=== PATIENT | female | born 1955 | race American Indian/Alaskan Native ===

== ENCOUNTER 2018-06-10 12:15 | Inpatient (IN) | payer OTHER ==
[2018-06-10] MEDS ORDERED: NACL 0.9% 1000 ML 1,000 ML IV ONE (13:04)
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
[2018-06-10 13:42] LABS: INR 1.38 (0.87-1.13)
[2018-06-10 13:43] LABS: Partial Thromboplastin Time 37.9 Sec. (24.2-36.6)
[2018-06-10 13:44] LABS: Hematocrit 41.7 % (30.3-42.9); Hemoglobin 13.5 gm/dl (10.1-14.3); Mean Corpuscular HGB Conc 32 % (30-34); Mean Corpuscular Volume 87 fl (79-97); Platelet Count 370 K/mm3 (140-440); Red Blood Count 4.78 M/mm3 (3.65-5.03)
[2018-06-10 13:51] LABS: BUN/Creatinine Ratio 27; Blood Urea Nitrogen 40 mg/dL (7-17); Calcium 9.4 mg/dL (8.4-10.2); Hemolysis Index 27
[2018-06-10 13:54] LABS: Alanine Aminotransferase 15 units/L (7-56); Albumin 2.4 g/dL (3.9-5)
[2018-06-10 13:55] LABS: Bilirubin,Direct < 0.2 mg/dL (0-0.2)
[2018-06-10] MEDS ORDERED: MAGNESIUM SULFATE 2GM/50ML 2 GM/50 ML BAG IV ONE ×2 (14:17→16:34)
[2018-06-10 14:30] LABS: Band Neutrophils # (Manual) 0.1 K/mm3; Basophils % (Manual) 0 % (0.0-1.8); Total Cells Counted 100
[2018-06-10 14:31] LABS: Large Platelets Few; Platelet Estimate Cons; RBC Morphology Normal
--- NOTE | 2018-06-10 14:49 | Cat Scan Report ---
CT HEAD WITHOUT CONTRAST INDICATION: Syncope, trauma. COMPARISON: None similar. FINDINGS: Noncontrast head CT demonstrates normal ventricles and sulci without acute or recent infarct, hemorrhage, mass effect or midline shift. No abnormal extra-axial fluid collections. Minimal benign bilateral basal ganglia calcifications. Posterior fossa structures and basilar cisterns within normal limits. Symmetric eye globes. Hypoplastic/aplastic bilateral frontal sinuses. Clear aerated paranasal sinuses and mastoid air cells. Intact calvarium. Normal overlying scalp soft tissues. Predominantly edentulous jaw with some anterior mandibular radiopaque dental material incidentally noted. Atherosclerotic ICA calcifications. CONCLUSION: No acute intracranial CT abnormality, as described. Thank you for the opportunity to participate in this patient's care.
--- NOTE | 2018-06-10 15:08 | Cat Scan Report ---
CT CERVICAL SPINE WITHOUT CONTRAST INDICATION: Syncope, trauma. COMPARISON: None similar. FINDINGS: Noncontrast axial, sagittal and coronal CT reconstructions through the cervical spine demonstrate normal intracranial appearance. Clear visualized paranasal sinuses and mastoid air cells. Approximately 1.8 cm asymmetric right occipital intramuscular lipoma incidentally seen as on axial series 2, image 27. Streak artifact from bilateral earrings and few small radiopaque dental material limits exam. Assessment of the spinal canal itself also compromised from C6 inferiorly due to shoulder soft tissues artifact. Intact craniocervical articulation, dens, lateral masses, anterior and posterior arches of C1, prevertebral soft tissues and airway. Multilevel degenerative spurring and endplate irregularities noted from C3 inferiorly. Straightening, possibly positional versus spasm. Approximately 1.5 cm right thyroid lobe hypodense nodule inferiorly as on axial image 69. Clear imaged lung apices. On the obtained axial images: C2-C3 is unremarkable. C3-C4 demonstrates left more than right uncovertebral and facet spurring/hypertrophy with left more than right neural foraminal narrowing, axial series 3, image 81. Mild disc narrowing as well. C4-C5 also suggests moderate left facet arthropathy and left more than right uncovertebral spurring with left neural foraminal narrowing, axial images 89-90. C5-C6 demonstrate moderate to severe disc narrowing, mild uncovertebral spurring and mild bilateral neural foraminal narrowing. C6-C7 also demonstrates moderate to severe disc narrowing with mild degenerative spurring, left more than right uncovertebral, with neural foraminal narrowing. C7-T1 suggest mild bilateral facet arthropathy/sclerosis. CONCLUSION: No acute cervical spine CT abnormality with multilevel degenerative changes and few other findings as described. Please correlate. Thank you for the opportunity to participate in this patient's care.
[2018-06-10] MEDS ORDERED: BABY ASPIRIN PO ONE (15:25)
[2018-06-10] MEDS ORDERED: BABY ASPIRIN ONE (16:33)
[2018-06-10] MEDS ORDERED: NACL 0.9% 1000 ML 1,000 ML ONE (16:34)
[2018-06-10] MEDS: FIORICET PO PRN (18:16)
[2018-06-10] MEDS ORDERED: D50W (25GM) Syringe IV PRN (22:23)
[2018-06-11] MEDS ORDERED: AMBIEN PO PRN (00:32)
[2018-06-11] MEDS ORDERED: DILAUDID IV PRN (00:38)
[2018-06-11] MEDS ORDERED: SODIUM CHLORIDE FLUSH SYRINGE 10 ML IV PRN (00:38)
[2018-06-11] MEDS ORDERED: ZOFRAN IV PRN (00:38)
--- NOTE | 2018-06-11 00:38 | Event Note ---
Date: 06/10/18 See H/p in reports Syncope--recurrent HTN T2DM Gastroparesis
[2018-06-11] MEDS ORDERED: MAGNESIUM SULFATE 2GM/50ML 2 GM/50 ML BAG IV ONE (00:49)
[2018-06-11] MEDS ORDERED: NACL 0.9% 1000 ML 1,000 ML IV SCH (01:00)
[2018-06-11] MEDS ORDERED: GLUCOPHAGE PO SCH (01:00)
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
[2018-06-11] MEDS: FIORICET PO PRN (02:38)
[2018-06-11] MEDS: APRESOLINE PO SCH ×2 (04:07→10:41)
[2018-06-11 05:53] LABS: BUN/Creatinine Ratio 32; Blood Urea Nitrogen 32 mg/dL (7-17); Calcium 9.3 mg/dL (8.4-10.2); Hemolysis Index 15
--- NOTE | 2018-06-11 06:43 | Event Note ---
Patient sustained a fall, her head hit the toilet, sustaining a laceration Obtain CT head
[2018-06-11] MEDS ORDERED: LEXISCAN IV ONE ×2 (07:59→08:08)
[2018-06-11] MEDS ORDERED: PEPCID IV SCH (10:00)
[2018-06-11] MEDS ORDERED: LASIX PO SCH (10:00)
[2018-06-11] MEDS: ZOLOFT PO SCH (10:41)
[2018-06-11] MEDS: SODIUM CHLORIDE FLUSH SYRINGE 10 ML IV SCH ×2 (10:42→21:56)
[2018-06-11] MEDS: NEURONTIN PO SCH ×2 (10:43→19:52)
--- NOTE | 2018-06-11 11:11 | Cat Scan Report ---
PROCEDURE: CT HEAD/BRAIN WO CON TECHNIQUE: Computerized tomography of the head was performed without contrast material. Coronal and s agittal reformatted images were provided. CT DOSE LENGTH PRODUCT: 773.3 mGy-cm. HISTORY: fall COMPARISONS: CT head June 10, 2018. FINDINGS: There is no evidence for acute ischemia. There is no hemorrhage. There is no midline shift. There is no hydrocephalus. There is no mass. Age appropriate dickens-white matter attenuation is noted. There is no calvarial fracture. The temporal bones demonstrate aerated mastoid air cells. The middle ears appear unremarkable. Paranasal sinuses are unremarkable. Globes are intact. IMPRESSION: * Comparison with prior will be made as an addendum once requested prior images and report are provi ded. * No acute intracranial findings. This document is electronically signed by Juan Alberto Bhatia MD., June 11 2018 11:10:00 AM ET
--- NOTE | 2018-06-11 12:30 | Vascular Lab Report ---
PROCEDURE: VL CAROTID DUPLEX BILAT TECHNIQUE: Carotid ultrasound. Degree of carotid stenosis calculated by indirect methods via the peak systolic velocities of the ICA and CCA and reference with the society of Radiologist and Ultrasound consensus conference radiology 2003. HISTORY: Syncope COMPARISONS: None currently available. FINDINGS: Note: Measurement of carotid stenosis is based on flow velocity values that correlate with the [place] Symptomatic Carotid Endarterectomy Trial (NASCET) based stenosis criteria using the internal carotid artery diameter as the denominator for stenosis calculation. RIGHT CCA, ICA, and ECA (cm/s): 122, 97, and 95. Ratio = 0.84. LEFT CCA, ICA, and ECA (cm/s): 106, 93, and 88. Ratio = 0.88. There is plaque in both carotids. Both vertebral arteries demonstrate antegrade flow. Normal spectral rhythm is identified. Incidentally noted is a right thyroid lesion measuring 1.1 x 1.2 cm. IMPRESSION: * No hemodynamically significant (>50%) stenosis noted based on the ratios, velocities, and color Do ppler images. * Incidentally noted right thyroid lesion. This document is electronically signed by Juan Alberto Bhatia MD., June 11 2018 12:28:26 PM ET
--- NOTE | 2018-06-11 13:23 | Progress Note ---
Assessment and Plan Assessment and plan: Patient is a 63 yo woman with a history of hypertension, type 2 DM, gastroparesis, CHF, DVT on Xarelto, depression, peripheral neuropahty on gabapentin and dyslipidemia who presents to [facility] ED after recurrent syncopal episode. -Syncope, work up in progress: check orthostatic vitals, 2D ECHO done but not read yet, tele monitoring, no events x [address] head negative. consult Neurology -ARF, atn + vasomotor nephropathy, poa: treat with IVF, improved, monitor closely -Hypotension: ivf and hold antihypertensives -Type 2 DM: ssi, accucheck, ada -H/o DVT on Xarelto with recurrent falls: d/c anticoagulation -Hyponatremia: ivf and monitor closely -Hypokalemia: replete and monitor closely -Hypomagensemia: ivf and monitor closely -Severe malnutrition: consult Director Facilities Maintenance -Elevated D-Dimer. poa: get venous leg doppler and CTA chest DVT prophylaxis: scd due to falls full code last night 06/10/18, patient fell again, ?another syncopal episode and was given fioricet for headaches, repeat CT head negative for any acute event. She went down for stress test today and it was canceled because she received Fioricet. Now stress test re-ordered for Wednesday. follow up cta chest, leg doppler, orthostatic vitals History Interval history: Patient was seen and examined. Follow-up on current diagnosis of Syncope. O vernight uneventful. Patient denies any chest pain, shortness breath, nausea/vomiting or severe headaches. Imaging, nursing note, chart, labs and old chart reviewed. Discussed with patient. Hospitalist Physical - Physical exam Narrative exam: Gen: WDWN, NAD, Awake, Alert, Orientated HEENT: >cut on left eyebrow lateral corner healing, EOMI, PERRL, OP Clear Neck: supple, no adenopathy, no thyromegaly, no JVD CVS/Heart: RRR, normal S1S2, pulses present bilaterally Chest/Lungs: CTA B, Symmetrical chest expansion, good air entry bilaterally GI/Abdomen: soft, NTND, good bowel sounds, no guarding or rebound /Bladder: no suprapubic tenderness, no CVA or paraspinal tenderness Extermity/Skin: no c/c/e, no obvious rash MSK: FROM x 4 Neuro: CN 2-12 grossly intact, no new focal deficits Psych: calm - Constitutional Vitals: Temp Pulse Resp BP Pulse Ox 97.8 F 76 18 124/64 97 06/11/18 07:27 06/11/18 07:27 06/11/18 07:27 06/11/18 07:27 06/11/18 07:27 Results - Labs CBC & Chem 7: 06/10/18 13:19 06/11/18 04:59 Labs: Laboratory Last Values WBC 6.2 K/mm3 (4.5-11.0) 06/10/18 13:19 RBC 4.78 M/mm3 (3.65-5.03) 06/10/18 13:19 Hgb 13.5 gm/dl (10.1-14.3) 06/10/18 13:19 Hct 41.7 % (30.3-42.9) 06/10/18 13:19 MCV 87 fl (79-97) 06/10/18 13:19 MCH 28 pg (28-32) 06/10/18 13:19 MCHC 32 % (30-34) 06/10/18 13:19 RDW 15.0 % (13.2-15.2) 06/10/18 13:19 Plt Count 370 K/mm3 (140-440) 06/10/18 13:19 Baso % (Auto) Tester Operator 06/10/18 13:19 Add Manual Diff Complete 06/10/18 13:19 Total Counted 100 06/10/18 13:19 Seg Neuts % (Manual) 61.0 % (40.0-70.0) 06/10/18 13:19 Band Neutrophils % 2.0 % 06/10/18 13:19 Lymphocytes % (Manual) 23.0 % (13.4-35.0) 06/10/18 13:19 Reactive Lymphs % (Man) 0 % 06/10/18 13:19 Monocytes % (Manual) 11.0 % (0.0-7.3) H 06/10/18 13:19 Eosinophils % (Manual) 3.0 % (0.0-4.3) 06/10/18 13:19 Basophils % (Manual) 0 % (0.0-1.8) 06/10/18 13:19 Metamyelocytes % 0 % 06/10/18 13:19 Myelocytes % 0 % 06/10/18 13:19 Promyelocytes % 0 % 06/10/18 13:19 Blast Cells % 0 % 06/10/18 13:19 Nucleated RBC % Not Reportable 06/10/18 13:19 Seg Neutrophils # Man 3.8 K/mm3 (1.8-7.7) 06/10/18 13:19 Band Neutrophils # 0.1 K/mm3 06/10/18 13:19 Lymphocytes # (Manual) 1.4 K/mm3 (1.2-5.4) 06/10/18 13:19 Abs React Lymphs (Man) 0.0 K/mm3 06/10/18 13:19 Monocytes # (Manual) 0.7 K/mm3 (0.0-0.8) 06/10/18 13:19 Eosinophils # (Manual) 0.2 K/mm3 (0.0-0.4) 06/10/18 13:19 Basophils # (Manual) 0.0 K/mm3 (0.0-0.1) 06/10/18 13:19 Metamyelocytes # 0.0 K/mm3 06/10/18 13:19 Myelocytes # 0.0 K/mm3 06/10/18 13:19 Promyelocytes # 0.0 K/mm3 06/10/18 13:19 Blast Cells # 0.0 K/mm3 06/10/18 13:19 WBC Morphology Not Reportable 06/10/18 13:19 Hypersegmented Neuts Not Reportable 06/10/18 13:19 Hyposegmented Neuts Not Reportable 06/10/18 13:19 Hypogranular Neuts Not Reportable 06/10/18 13:19 Smudge Cells Not Reportable 06/10/18 13:19 Toxic Granulation Not Reportable 06/10/18 13:19 Toxic Vacuolation Not Reportable 06/10/18 13:19 Dohle Bodies Not Reportable 06/10/18 13:19 Pelger-Huet Anomaly Not Reportable 06/10/18 13:19 Maryann Rods Not Reportable 06/10/18 13:19 Platelet Estimate Cons 06/10/18 13:19 Clumped Platelets Not Reportable 06/10/18 13:19 Plt Clumps, EDTA Not Reportable 04/26/19 13:19 Large Platelets Few 06/10/18 13:19 Giant Platelets Not Reportable 06/10/18 13:19 Platelet Satelliting Not Reportable 06/10/18 13:19 Plt Morphology Comment Not Reportable 06/10/18 13:19 RBC Morphology Normal 06/10/18 13:19 Dimorphic RBCs Not Reportable 06/10/18 13:19 Polychromasia Not Reportable 06/10/18 13:19 Hypochromasia Not Reportable 06/10/18 13:19 Poikilocytosis Not Reportable 06/10/18 13:19 Anisocytosis Not Reportable 06/10/18 13:19 Microcytosis Not Reportable 06/10/18 13:19 Macrocytosis Not Reportable 06/10/18 13:19 Spherocytes Not Reportable 06/10/18 13:19 Pappenheimer Bodies Not Reportable 06/10/18 13:19 Sickle Cells Not Reportable 06/10/18 13:19 Target Cells Not Reportable 06/10/18 13:19 Tear Drop Cells Not Reportable 06/10/18 13:19 Ovalocytes Not Reportable 06/10/18 13:19 Helmet Cells Not Reportable 06/10/18 13:19 [place] Bodies Not Reportable 06/10/18 13:19 [place] Rings Not Reportable 06/10/18 13:19 [place] Cells Not Reportable 06/10/18 13:19 Bite Cells Not Reportable 06/10/18 13:19 Crenated Cell Not Reportable 06/10/18 13:19 Elliptocytes Not Reportable 06/10/18 13:19 Acanthocytes (Spur) Not Reportable 06/10/18 13:19 Rouleaux Not Reportable 06/10/18 13:19 Hemoglobin C Crystals Not Reportable 06/10/18 13:19 Schistocytes Not Reportable 06/10/18 13:19 Malaria parasites Not Reportable 06/10/18 13:19 Ricky Bodies Not Reportable 06/10/18 13:19 Hem Pathologist Commnt No 06/10/18 13:19 PT 17.9 Sec. (12.2-14.9) H 06/10/18 13:27 INR 1.38 (0.87-1.13) H 06/10/18 13:27 APTT 37.9 Sec. (24.2-36.6) H 06/10/18 13:27 D-Dimer 506.55 ng/mlDDU (0-234) H 06/10/18 13:27 Sodium 139 mmol/L (137-145) 06/11/18 04:59 Potassium 3.0 mmol/L (3.6-5.0) L 06/11/18 04:59 Chloride 97.2 mmol/L (98-107) L 06/11/18 04:59 Carbon Dioxide 31 mmol/L (22-30) H 06/11/18 04:59 Anion Gap 14 mmol/L 06/11/18 04:59 BUN 32 mg/dL (7-17) H 06/11/18 04:59 Creatinine 1.0 mg/dL (0.7-1.2) 06/11/18 04:59 Estimated GFR > 60 ml/min 06/11/18 04:59 BUN/Creatinine Ratio 32 % 06/11/18 04:59 Glucose 91 mg/dL (65-100) 06/11/18 04:59 POC Glucose 110 (70-105) H 06/11/18 11:52 Calcium 9.3 mg/dL (8.4-10.2) 06/11/18 04:59 Magnesium 2.50 mg/dL (1.7-2.3) H 06/11/18 04:59 Total Bilirubin 0.20 mg/dL (0.1-1.2) 06/10/18 13:19 Direct Bilirubin < 0.2 mg/dL (0-0.2) 06/10/18 13:19 Indirect Bilirubin 0.0 mg/dL 06/10/18 13:19 AST 21 units/L (5-40) 06/10/18 13:19 ALT 15 units/L (7-56) 06/10/18 13:19 Alkaline Phosphatase 85 units/L (35-129) 06/10/18 13:19 Troponin T < 0.010 ng/mL (0.00-0.029) 06/10/18 13:27 Total Protein 5.9 g/dL (6.3-8.2) L 06/10/18 13:19 Albumin 2.4 g/dL (3.9-5) L 06/10/18 13:19 Albumin/Globulin Ratio 0.7 % 06/10/18 13:19 Active Medications - Current Medications Current Medications: Generic Name Dose Route Start Last Admin Trade Name Freq PRN Reason Stop Dose Admin Acetaminophen 650 mg 06/11/18 00:38 Tylenol PO Q4H PRN Pain MILD(1-3)/Fever >100.5/CARMICHAEL Amlodipine Besylate 10 mg 06/11/18 22:00 Norvasc PO HS DIMITRI Dextrose 50 ml 06/10/18 22:23 D50w (25gm) Syringe IV PRN PRN Hypoglycemia Famotidine 20 mg 06/11/18 10:00 06/11/18 10:42 Pepcid IV 20 mg BID DIMITRI Administration Furosemide 40 mg 06/11/18 10:00 06/11/18 10:41 Lasix PO 40 mg QDAY DIMITRI Administration Gabapentin 300 mg 06/11/18 08:00 06/11/18 10:43 Neurontin PO 300 mg TID DIMITRI Administration Hydralazine HCl 25 mg 06/11/18 01:00 06/11/18 10:41 Apresoline PO 25 mg BID DIMITRI Administration Hydromorphone HCl 0.5 mg 06/11/18 00:38 Dilaudid IV Q3H PRN Pain , Severe (7-10) Sodium Chloride 1,000 mls @ 75 mls/hr 06/11/18 01:00 06/11/18 02:31 Nacl 0.9% 1000 Ml IV 75 mls/hr DIRECT DIMITRI Administration Insulin Human Lispro 0 unit 06/11/18 07:30 Humalog SUB-Q [facility]S [facility] Protocol Ondansetron HCl 4 mg 06/11/18 00:38 Zofran IV Q8H PRN Nausea And Vomiting Oxycodone/Acetaminophen 1 tab 06/11/18 00:38 Percocet 5/325 PO Q6H PRN Pain, Moderate (4-6) Potassium Chloride 60 meq 06/11/18 14:07 K-Dur PO 06/11/18 14:08 ONCE ONE Pravastatin Sodium 20 mg 06/11/18 22:00 Pravachol PO QHS DIMITRI Sertraline HCl 50 mg 06/11/18 10:00 06/11/18 10:41 Zoloft PO 50 mg QAM DIMITRI Administration Sodium Chloride 10 ml 06/11/18 10:00 06/11/18 10:42 Sodium Chloride Flush Syringe 10 Ml IV 10 ml BID DIMITRI Administration Sodium Chloride 10 ml 06/11/18 00:38 Sodium Chloride Flush Syringe 10 Ml IV PRN PRN LINE FLUSH Zolpidem Tartrate 5 mg 06/11/18 00:32 Ambien PO QHS PRN Sleep Nutrition/Malnutrition Assess - Dietary Evaluation Nutrition/Malnutrition Findings: Nutrition Notes Start: 06/11/18 10:19 Freq: Status: Active Protocol: Document 06/11/18 10:19 LP (Rec: 06/11/18 10:22 LP [id number]) Nutrition Notes Need for Assessment generated from: bit shaver,MST Initial or Follow up Brief Note Current Diagnosis Acute Kidney Injury,Diabetes, Hypertension,Heart Failure Other Pertinent Diagnosis Gastroparesis Current Diet Consistent CHO Labs/Tests K 3 Pertinent Medications Lasix Height 5 ft 3 in Weight 83 kg [place] Body Weight (kg) 52.27 BMI 32.4 Subjective/Other Information Screen for MST. Pt not in room at time of visit. Burn Absent Trauma Absent Is patient on ventilator? No Is Patient Ambulatory and/or Out of Bed Yes REE-(Hardwick-St. or-ambulatory/OOB) [ 1747.369 [id number]] Calculation Used for Recommendations Hardwick-St or Additional Notes Protein needs are 83-100g (1-1 .2g/kg) Fluid needs are 1ml/kcal Nutrition Intervention Change Diet Order: Cardiac consistent CHO Goal #1 Meet at least 80% of kcal and protein needs Anticipated Discharge Needs: cardiac/consistent CHO Follow-Up By: 06/14/18 Additional Comments Follow for assessment
[2018-06-11] MEDS ORDERED: K-DUR PO ONE (14:07)
--- NOTE | 2018-06-11 14:16 | Progress Note ---
Subjective Date of service: 06/11/18 Interval history: went over the record and there is hx of syncpoe x 2 not sure about fall several days back when hit touilet and lacerated the left eye area looked at the photos' the CT is negative both times hx of diabetes suspect diabetic autonomic neuropathy rec tilt table test and check EEG Objective - Vital Sign Vital Signs - 12hr 06/11/18 06/11/18 06/11/18 02:58 04:07 07:27 Temperature 97.5 F L 97.8 F Pulse Rate 71 71 76 Respiratory 18 18 Rate Blood Pressure 118/69 118/69 Blood Pressure 124/64 [Left] O2 Sat by Pulse 99 97 Oximetry - Laboratory Findings CBC and BMP: 06/10/18 13:19 06/11/18 04:59 Abnormal Lab Findings: Abnormal Labs 06/10/18 06/10/18 06/10/18 13:19 13:19 13:27 Monocytes % (Manual) 11.0 H PT 17.9 H INR 1.38 H APTT 37.9 H D-Dimer 506.55 H Sodium Potassium Chloride Carbon Dioxide BUN Creatinine Glucose POC Glucose Magnesium Total Protein 5.9 L Albumin 2.4 L 06/10/18 06/11/18 06/11/18 13:27 04:59 04:59 Monocytes % (Manual) PT INR APTT D-Dimer Sodium 135 L Potassium 3.0 L Chloride 94.1 L 97.2 L Carbon Dioxide 31 H BUN 40 H 32 H Creatinine 1.5 H Glucose 120 H POC Glucose Magnesium 1.60 L 2.50 H Total Protein Albumin 06/11/18 11:52 Monocytes % (Manual) PT INR APTT D-Dimer Sodium Potassium Chloride Carbon Dioxide BUN Creatinine Glucose POC Glucose 110 H Magnesium Total Protein Albumin
--- NOTE | 2018-06-11 15:43 | Vascular Lab Report ---
PROCEDURE: VL VENOUS DUPLEX LE BILAT TECHNIQUE: Grayscale, color flow and Doppler tracings obtained of the veins of the lower extremities bilaterally with and without compression. HISTORY: dvt COMPARISONS: No priors FINDINGS: There is no evidence of deep venous thrombosis in the lower extremities area of the veins are patent and compressible. IMPRESSION: . No evidence of deep venous thrombosis in the lower extremities bilaterally. This document is electronically signed by Doug Escalante MD., June 11 2018 03:40:50 PM ET
[2018-06-11] MEDS: PRAVACHOL PO SCH (21:55)
[2018-06-11] MEDS: NORVASC PO SCH (21:55)
[2018-06-11] MEDS: HumaLOG SUB-Q SCH (22:50)
[2018-06-12] MEDS: TYLENOL PO PRN ×2 (00:18→19:28)
[2018-06-12 05:59] LABS: Basophils # (Auto) 0.1 K/mm3 (0.0-0.1); Eosinophils # (Auto) 0.2 K/mm3 (0.0-0.4); Eosinophils % (Auto) 3.9 % (0.0-4.3); Hematocrit 37.2 % (30.3-42.9); Hemoglobin 12.3 gm/dl (10.1-14.3); Lymphocytes # (Auto) 2.2 K/mm3 (1.2-5.4); Lymphocytes % (Auto) 40.1 % (13.4-35.0); Mean Corpuscular HGB Conc 33 % (30-34); Mean Corpuscular Volume 85 fl (79-97); Monocytes # (Auto) 0.5 K/mm3 (0.0-0.8); Monocytes % (Auto) 8.4 % (0.0-7.3); Platelet Count 389 K/mm3 (140-440); Red Blood Count 4.39 M/mm3 (3.65-5.03); Red Cell Distribution Width 14.8 % (13.2-15.2)
[2018-06-12 06:11] LABS: Alanine Aminotransferase 10 units/L (7-56); Albumin 2.4 g/dL (3.9-5); BUN/Creatinine Ratio 27; Blood Urea Nitrogen 24 mg/dL (7-17); Calcium 9.1 mg/dL (8.4-10.2); Hemolysis Index 6
[2018-06-12] MEDS: HumaLOG SUB-Q SCH ×5 (09:44→23:35)
[2018-06-12] MEDS: ZOLOFT PO SCH (10:25)
[2018-06-12] MEDS: NEURONTIN PO SCH ×3 (10:25→20:01)
[2018-06-12] MEDS: SODIUM CHLORIDE FLUSH SYRINGE 10 ML IV SCH ×2 (10:26→23:36)
--- NOTE | 2018-06-12 11:25 | Progress Note ---
Subjective Date of service: 06/12/18 Interval history: patient seen and extensive dictation done await EEG to me the syncope sounds epileptic do not believe this is Parkinson's Disease or TIA based on abruptness of episodes Objective - Vital Sign Vital Signs - 12hr 06/12/18 06/12/18 06/12/18 02:10 07:29 10:00 Temperature 98.3 F 97.8 F Pulse Rate 75 82 82 Respiratory 20 14 Rate Blood Pressure 108/59 112/68 O2 Sat by Pulse 96 97 Oximetry - Laboratory Findings CBC and BMP: 06/12/18 05:18 06/12/18 05:30 Abnormal Lab Findings: Abnormal Labs 06/10/18 06/10/18 06/10/18 13:19 13:19 13:27 Lymph % (Auto) Bent % (Auto) Monocytes % (Manual) 11.0 H PT 17.9 H INR 1.38 H APTT 37.9 H D-Dimer 506.55 H Sodium Potassium Chloride Carbon Dioxide BUN Creatinine Glucose POC Glucose Magnesium Total Protein 5.9 L Albumin 2.4 L 06/10/18 06/11/18 06/11/18 13:27 04:59 04:59 Lymph % (Auto) Bent % (Auto) Monocytes % (Manual) PT INR APTT D-Dimer Sodium 135 L Potassium 3.0 L Chloride 94.1 L 97.2 L Carbon Dioxide 31 H BUN 40 H 32 H Creatinine 1.5 H Glucose 120 H POC Glucose Magnesium 1.60 L 2.50 H Total Protein Albumin 06/11/18 06/12/18 06/12/18 11:52 05:18 05:30 Lymph % (Auto) 40.1 H Bent % (Auto) 8.4 H Monocytes % (Manual) PT INR APTT D-Dimer Sodium Potassium 3.5 L Chloride Carbon Dioxide BUN 24 H Creatinine Glucose POC Glucose 110 H Magnesium Total Protein 4.4 L D Albumin 2.4 L
[2018-06-12] MEDS ORDERED: K-DUR PO ONE (13:22)
--- NOTE | 2018-06-12 13:33 | Progress Note ---
Assessment and Plan Assessment and plan: Patient is a 63 yo woman with a history of hypertension, type 2 DM, gastroparesis s/p PEG tube, CHF, DVT on Xarelto, depression, peripheral neuropahty on gabapentin and dyslipidemia who presents to [facility] ED after recurrent syncopal episode. -Syncope, work up in progress: check orthostatic vitals, 2D ECHO done but not read yet, tele monitoring, no events x [address] head negative. consult Neurology -ARF, atn + vasomotor nephropathy, poa: treat with IVF, improved, monitor closely -Hypotension: ivf and hold antihypertensives -Gastroparesis with PEG tube in place: consult Plow Mechanic for tube feedings -Type 2 DM: ssi, accucheck, ada -H/o DVT on Xarelto with recurrent falls: d/c anticoagulation -Hyponatremia: ivf and monitor closely -Hypokalemia: replete and monitor closely -Hypomagensemia: ivf and monitor closely -Severe malnutrition with PEG tube: consulted Plow Mechanic -Elevated D-Dimer. poa: ordered venous leg doppler and CTA chest DVT prophylaxis: scd due to falls full code 06/10/18, patient fell again, ?another syncopal episode and was given fioricet for headaches so Stress test was cancelled, repeat CT head negative for any acute event. She went down for stress test today and it was canceled because she received Fioricet. Now stress test re-ordered for Wednesday. 06/11/18: ordered cta chest, leg doppler and orthostatic vitials 06/12/18: cta chest still pending, was ordered stat, called Radiology dept, no answer then called rice milling supervisor and spoke with Cherry. Bilateral venous leg doppler negative for DVT, Orthostatic vitals still pending, spoke with rice milling supervisor. Stress tomorrow, also consult vegetable washer for tube feedings. Also, patient says she was just at [facility], will request records. Disposition, if stress test negative for ischemia and CTA chest negative for PE then discharge home tomorrow. History Interval history: Patient was seen and examined. Follow-up on current diagnosis of Syncope. Overnight uneventful. Patient denies any chest pain, shortness breath, nausea/vomiting or severe headaches. Imaging, nursing note, chart, labs and old chart reviewed. Discussed with patient. Hospitalist Physical - Physical exam Narrative exam: Gen: WDWN, NAD, Awake, Alert, Orientated HEENT: >cut on left eyebrow lateral corner healing, EOMI, PERRL, OP Clear Neck: supple, no adenopathy, no thyromegaly, no JVD CVS/Heart: RRR, normal S1S2, pulses present bilaterally Chest/Lungs: CTA B, Symmetrical chest expansion, good air entry bilaterally GI/Abdomen: soft, NTND, PEG tube in place, good bowel sounds, no guarding or rebound /Bladder: no suprapubic tenderness, no CVA or paraspinal tenderness Extermity/Skin: no c/c/e, no obvious rash MSK: FROM x 4 Neuro: CN 2-12 grossly intact, no new focal deficits Psych: calm - Constitutional Vitals: Temp Pulse Resp BP Pulse Ox 97.8 F 82 14 112/68 97 06/12/18 07:29 06/12/18 10:00 06/12/18 07:29 06/12/18 07:29 06/12/18 07:29 Results - Labs CBC & Chem 7: 06/12/18 05:18 06/12/18 05:30 Labs: Laboratory Last Values WBC 5.6 K/mm3 (4.5-11.0) 06/12/18 05:18 RBC 4.39 M/mm3 (3.65-5.03) 06/12/18 05:18 Hgb 12.3 gm/dl (10.1-14.3) 06/12/18 05:18 Hct 37.2 % (30.3-42.9) 06/12/18 05:18 MCV 85 fl (79-97) 06/12/18 05:18 MCH 28 pg (28-32) 06/12/18 05:18 MCHC 33 % (30-34) 06/12/18 05:18 RDW 14.8 % (13.2-15.2) 06/12/18 05:18 Plt Count 389 K/mm3 (140-440) 06/12/18 05:18 Lymph % (Auto) 40.1 % (13.4-35.0) H 06/12/18 05:18 [place] % (Auto) 8.4 % (0.0-7.3) H 06/12/18 05:18 Eos % (Auto) 3.9 % (0.0-4.3) 06/12/18 05:18 Baso % (Auto) 1.0 % (0.0-1.8) 06/12/18 05:18 Lymph # 2.2 K/mm3 (1.2-5.4) 06/12/18 05:18 [place] # 0.5 K/mm3 (0.0-0.8) 06/12/18 05:18 Eos # 0.2 K/mm3 (0.0-0.4) 06/12/18 05:18 Baso # 0.1 K/mm3 (0.0-0.1) 06/12/18 05:18 Add Manual Diff Complete 06/10/18 13:19 Total Counted 100 06/10/18 13:19 Seg Neutrophils % 46.6 % (40.0-70.0) 06/12/18 05:18 Seg Neuts % (Manual) 61.0 % (40.0-70.0) 06/10/18 13:19 Band Neutrophils % 2.0 % 06/10/18 13:19 Lymphocytes % (Manual) 23.0 % (13.4-35.0) 06/10/18 13:19 Reactive Lymphs % (Man) 0 % 06/10/18 13:19 Monocytes % (Manual) 11.0 % (0.0-7.3) H 06/10/18 13:19 Eosinophils % (Manual) 3.0 % (0.0-4.3) 06/10/18 13:19 Basophils % (Manual) 0 % (0.0-1.8) 06/10/18 13:19 Metamyelocytes % 0 % 06/10/18 13:19 Myelocytes % 0 % 06/10/18 13:19 Promyelocytes % 0 % 06/10/18 13:19 Blast Cells % 0 % 06/10/18 13:19 Nucleated RBC % Not Reportable 06/10/18 13:19 Seg Neutrophils # 2.6 K/mm3 (1.8-7.7) 06/12/18 05:18 Seg Neutrophils # Man 3.8 K/mm3 (1.8-7.7) 06/10/18 13:19 Band Neutrophils # 0.1 K/mm3 06/10/18 13:19 Lymphocytes # (Manual) 1.4 K/mm3 (1.2-5.4) 06/10/18 13:19 Abs React Lymphs (Man) 0.0 K/mm3 06/10/18 13:19 Monocytes # (Manual) 0.7 K/mm3 (0.0-0.8) 06/10/18 13:19 Eosinophils # (Manual) 0.2 K/mm3 (0.0-0.4) 06/10/18 13:19 Basophils # (Manual) 0.0 K/mm3 (0.0-0.1) 06/10/18 13:19 Metamyelocytes # 0.0 K/mm3 06/10/18 13:19 Myelocytes # 0.0 K/mm3 06/10/18 13:19 Promyelocytes # 0.0 K/mm3 06/10/18 13:19 Blast Cells # 0.0 K/mm3 06/10/18 13:19 WBC Morphology Not Reportable 06/10/18 13:19 Hypersegmented Neuts Not Reportable 06/10/18 13:19 Hyposegmented Neuts Not Reportable 06/10/18 13:19 Hypogranular Neuts Not Reportable 06/10/18 13:19 Smudge Cells Not Reportable 06/10/18 13:19 Toxic Granulation Not Reportable 06/10/18 13:19 Toxic Vacuolation Not Reportable 06/10/18 13:19 Dohle Bodies Not Reportable 06/10/18 13:19 Pelger-Huet Anomaly Not Reportable 06/10/18 13:19 Maryann Rods Not Reportable 06/10/18 13:19 Platelet Estimate Cons 06/10/18 13:19 Clumped Platelets Not Reportable 06/10/18 13:19 Plt Clumps, EDTA Not Reportable 06/10/18 13:19 Large Platelets Few 06/10/18 13:19 Giant Platelets Not Reportable 06/10/18 13:19 Platelet Satelliting Not Reportable 06/10/18 13:19 Plt Morphology Comment Not Reportable 06/10/18 13:19 RBC Morphology Normal 06/10/18 13:19 Dimorphic RBCs Not Reportable 06/10/18 13:19 Polychromasia Not Reportable 06/10/18 13:19 Hypochromasia Not Reportable 06/10/18 13:19 Poikilocytosis Not Reportable 06/10/18 13:19 Anisocytosis Not Reportable 06/10/18 13:19 Microcytosis Not Reportable 06/10/18 13:19 Macrocytosis Not Reportable 06/10/18 13:19 Spherocytes Not Reportable 06/10/18 13:19 Pappenheimer Bodies Not Reportable 06/10/18 13:19 Sickle Cells Not Reportable 06/10/18 13:19 Target Cells Not Reportable 06/10/18 13:19 Tear Drop Cells Not Reportable 06/10/18 13:19 Ovalocytes Not Reportable 06/10/18 13:19 Helmet Cells Not Reportable 06/10/18 13:19 [place] Bodies Not Reportable 06/10/18 13:19 [place] Rings Not Reportable 06/10/18 13:19 [place] Cells Not Reportable 06/10/18 13:19 Bite Cells Not Reportable 06/10/18 13:19 Crenated Cell Not Reportable 06/10/18 13:19 Elliptocytes Not Reportable 06/10/18 13:19 Acanthocytes (Spur) Not Reportable 06/10/18 13:19 Rouleaux Not Reportable 06/10/18 13:19 Hemoglobin C Crystals Not Reportable 06/10/18 13:19 Schistocytes Not Reportable 06/10/18 13:19 Malaria parasites Not Reportable 06/10/18 13:19 Ricky Bodies Not Reportable 06/10/18 13:19 Hem Pathologist Commnt No 06/10/18 13:19 PT 17.9 Sec. (12.2-14.9) H 06/10/18 13:27 INR 1.38 (0.87-1.13) H 06/10/18 13:27 APTT 37.9 Sec. (24.2-36.6) H 06/10/18 13:27 D-Dimer 506.55 ng/mlDDU (0-234) H 06/10/18 13:27 Sodium 141 mmol/L (137-145) 06/12/18 05:30 Potassium 3.5 mmol/L (3.6-5.0) L 06/12/18 05:30 Chloride 102.9 mmol/L (98-107) 06/12/18 05:30 Carbon Dioxide 28 mmol/L (22-30) 06/12/18 05:30 Anion Gap 14 mmol/L 06/12/18 05:30 BUN 24 mg/dL (7-17) H 06/12/18 05:30 Creatinine 0.9 mg/dL (0.7-1.2) 06/12/18 05:30 Estimated GFR > 60 ml/min 06/12/18 05:30 BUN/Creatinine Ratio 27 % 06/12/18 05:30 Glucose 87 mg/dL (65-100) 06/12/18 05:30 POC Glucose 81 (70-105) 06/12/18 12:02 Calcium 9.1 mg/dL (8.4-10.2) 06/12/18 05:30 Magnesium 2.50 mg/dL (1.7-2.3) H 06/11/18 04:59 Total Bilirubin 0.20 mg/dL (0.1-1.2) 06/12/18 05:30 Direct Bilirubin < 0.2 mg/dL (0-0.2) 06/10/18 13:19 Indirect Bilirubin 0.0 mg/dL 06/10/18 13:19 AST 14 units/L (5-40) 06/12/18 05:30 ALT 10 units/L (7-56) 06/12/18 05:30 Alkaline Phosphatase 72 units/L (35-129) 06/12/18 05:30 Troponin T < 0.010 ng/mL (0.00-0.029) 06/10/18 13:27 Total Protein 4.4 g/dL (6.3-8.2) L D 06/12/18 05:30 Albumin 2.4 g/dL (3.9-5) L 06/12/18 05:30 Albumin/Globulin Ratio 1.2 % 06/12/18 05:30 Active Medications - Current Medications Current Medications: Generic Name Dose Route Start Last Admin Trade Name Freq PRN Reason Stop Dose Admin Acetaminophen 650 mg 06/11/18 00:38 06/12/18 00:18 Tylenol PO 650 mg Q4H PRN Administration Pain MILD(1-3)/Fever >100.5/CARMICHAEL Amlodipine Besylate 10 mg 06/11/18 22:00 06/11/18 21:55 Norvasc PO 10 mg HS DIMITRI Administration Dextrose 50 ml 06/10/18 22:23 D50w (25gm) Syringe IV PRN PRN Hypoglycemia Gabapentin 300 mg 06/11/18 08:00 06/12/18 10:25 Neurontin PO 300 mg TID DIMITRI Administration Sodium Chloride 1,000 mls @ 75 mls/hr 06/11/18 01:00 06/11/18 02:31 Nacl 0.9% 1000 Ml IV 75 mls/hr DIRECT DIMITRI Administration Insulin Human Lispro 0 unit 06/11/18 07:30 06/12/18 09:44 Humalog SUB-Q Not Given ACHS [facility] Protocol Ondansetron HCl 4 mg 06/11/18 00:38 Zofran IV Q8H PRN Nausea And Vomiting Oxycodone/Acetaminophen 1 tab 06/11/18 00:38 Percocet 5/325 PO Q6H PRN Pain, Moderate (4-6) Pravastatin Sodium 20 mg 06/11/18 22:00 06/11/18 21:55 Pravachol PO 20 mg QHS DIMITRI Administration Sertraline HCl 50 mg 06/11/18 10:00 06/12/18 10:25 Zoloft PO 50 mg QAM DIMITRI Administration Sodium Chloride 10 ml 06/11/18 10:00 06/12/18 10:26 Sodium Chloride Flush Syringe 10 Ml IV 10 ml BID DIMITRI Administration Sodium Chloride 10 ml 06/11/18 00:38 Sodium Chloride Flush Syringe 10 Ml IV PRN PRN LINE FLUSH Zolpidem Tartrate 5 mg 06/11/18 00:32 Ambien PO QHS PRN Sleep Nutrition/Malnutrition Assess - Dietary Evaluation Nutrition/Malnutrition Findings: Nutrition Notes Start: 06/11/18 10:19 Freq: Status: Active Protocol: Document 06/11/18 10:19 LP (Rec: 06/11/18 10:22 LP [id number]) Nutrition Notes Need for Assessment generated from: jig borer,MST Initial or Follow up Brief Note Current Diagnosis Acute Kidney Injury,Diabetes, Hypertension,Heart Failure Other Pertinent Diagnosis Gastroparesis Current Diet Consistent CHO Labs/Tests K 3 Pertinent Medications Lasix Height 5 ft 3 in Weight 83 kg [place] Body Weight (kg) 52.27 BMI 32.4 Subjective/Other Information Screen for MST. Pt not in room at time of visit. Burn Absent Trauma Absent Is patient on ventilator? No Is Patient Ambulatory and/or Out of Bed Yes REE-([facility]-ambulatory/OOB) [ 1747.369 [id number]] Calculation Used for Recommendations [facility] Additional Notes Protein needs are 83-100g (1-1 .2g/kg) Fluid needs are 1ml/kcal Nutrition Intervention Change Diet Order: Cardiac consistent CHO Goal #1 Meet at least 80% of kcal and protein needs Anticipated Discharge Needs: cardiac/consistent CHO Follow-Up By: 06/14/18 Additional Comments Follow for assessment
[2018-06-12] MEDS: PERCOCET 5/325 PO PRN (14:19)
--- NOTE | 2018-06-12 14:43 | Cat Scan Report ---
PROCEDURE: CT ANGIOGRAM OF THE CHEST FOR PULMONARY EMBOLISM TECHNIQUE: Computerized axial tomographic angiography of the chest and pulmonary arteries was perfor med after the IV injection of iodinated nonionic contrast. The image data was postprocessed using max imum intensity projection (MIP) and 2-dimensional multiplanar reformatted (MPR) techniques. The exami nation is specifically tailored to the evaluation of the pulmonary arteries per clinical request. Au tomated exposure control, adjustment of mA and/or kV according to patient size, or iterative reconstr uction dose optimization techniques were utilized. CPT G9637, 58015 HISTORY: Shortness of breath R06.02, chest pain unspecified R07.9 , COMPARISONS: None . FINDINGS: Heart and pericardium: There is anterior pericardial fluid, measuring up to 9 mm in thickness. Thoracic aorta: Atherosclerotic calcification of the aorta. Pulmonary vasculature: Normal. No pulmonary emboli. Lymph nodes: No enlarged thoracic lymph nodes. Lungs: Normal. Pleural space: No effusion, thickening, or pneumothorax. Musculoskeletal structures: There are multilevel thoracolumbar spine degenerative disc changes. Upper abdominal structures: Gastrostomy tube is present. IMPRESSION: No evidence of pulmonary emboli. Pericardial effusion as described above This document is electronically signed by Molly Velázquez MD., June 12 2018 02:41:18 PM ET
[2018-06-12] MEDS: PRAVACHOL PO SCH (21:33)
[2018-06-12] MEDS: NORVASC PO SCH (23:34)
[2018-06-13 06:25] LABS: Hematocrit 36.7 % (30.3-42.9); Hemoglobin 12.2 gm/dl (10.1-14.3); Mean Corpuscular HGB Conc 33 % (30-34); Mean Corpuscular Volume 85 fl (79-97); Platelet Count 373 K/mm3 (140-440); Red Blood Count 4.33 M/mm3 (3.65-5.03)
[2018-06-13 06:30] LABS: BUN/Creatinine Ratio 24; Blood Urea Nitrogen 19 mg/dL (7-17); Hemolysis Index 9
[2018-06-13] MEDS: HumaLOG SUB-Q SCH ×5 (08:37→23:00)
[2018-06-13] MEDS: NEURONTIN PO SCH ×3 (08:38→21:13)
[2018-06-13] MEDS ORDERED: LEXISCAN IV ONE ×2 (10:45→10:46)
--- NOTE | 2018-06-13 11:29 | Progress Note ---
Assessment and Plan Assessment and plan: Patient is a 63 yo woman with a history of hypertension, type 2 DM, gastroparesis s/p PEG tube, CHF, DVT on Xarelto, depression, peripheral neuropahty on gabapentin and dyslipidemia who presents to [facility] ED after recurrent syncopal episode. -Syncope, work up in progress: check orthostatic vitals, 2D ECHO done but not read yet, tele monitoring, no events x [address] head negative. consult Neurology -ARF, atn + vasomotor nephropathy, poa: treat with IVF, improved, monitor closely -Hypotension: ivf and hold antihypertensives -Gastroparesis with PEG tube in place: consult [employer] Crewman for tube feedings -Type 2 DM: ssi, accucheck, ada -H/o DVT on Xarelto with recurrent falls: d/c anticoagulation -Hyponatremia: ivf and monitor closely -Hypokalemia: replete and monitor closely -Hypomagensemia: ivf and monitor closely -Severe malnutrition with PEG tube: consulted [employer] Crewman -Elevated D-Dimer. poa: ordered venous leg doppler and CTA chest negative for PE DVT prophylaxis: scd due to falls full code 06/10/18, patient fell again, ?another syncopal episode and was given fioricet for headaches so Stress test was cancelled, repeat CT head negative for any acute event. She went down for stress test today and it was canceled because she received Fioricet. Now stress test re-ordered for Wednesday. 06/11/18: ordered cta chest, leg doppler and orthostatic vitals 06/12/18: cta chest still pending, was ordered stat, called Radiology dept, no answer then called paint supervisor and spoke with Cherry. Bilateral venous leg doppler negative for DVT, Orthostatic vitals still pending, spoke with paint supervisor and she made sure it was read, CTA chest negative for PE Stress tomorrow, also consult crystalizer for tube feedings. Also, patient says she was just at [facility], will request records. 06/13/18: stress test today. Ordered PT for ambulatory dysfunction. Disposition: continue inpatient care, if stress test negative possible discharge today depending on PT recommendation. History Interval history: Patient was seen and examined. Follow-up on current diagnosis of Syncope. Overnight uneventful. Patient denies any chest pain, shortness breath, nausea/vomiting or severe headaches. Imaging, nursing note, chart, labs and old chart reviewed. Discussed with patient. Hospitalist Physical - Physical exam Narrative exam: Gen: WDWN, NAD, Awake, Alert, Orientated HEENT: >cut on left eyebrow lateral corner healing, EOMI, PERRL, OP Clear Neck: supple, no adenopathy, no thyromegaly, no JVD CVS/Heart: RRR, normal S1S2, pulses present bilaterally Chest/Lungs: CTA B, Symmetrical chest expansion, good air entry bilaterally GI/Abdomen: soft, NTND, PEG tube in place, good bowel sounds, no guarding or rebound /Bladder: no suprapubic tenderness, no CVA or paraspinal tenderness Extermity/Skin: no c/c/e, no obvious rash MSK: FROM x 4 Neuro: CN 2-12 grossly intact, no new focal deficits Psych: calm - Constitutional Vitals: Temp Pulse Resp BP Pulse Ox 97.8 F 88 18 98/61 94 06/13/18 07:37 06/13/18 07:37 06/13/18 07:37 06/13/18 07:37 06/13/18 07:37 Results - Labs CBC & Chem 7: 06/13/18 05:43 06/13/18 05:43 Labs: Laboratory Last Values WBC 4.7 K/mm3 (4.5-11.0) 06/13/18 05:43 RBC 4.33 M/mm3 (3.65-5.03) 06/13/18 05:43 Hgb 12.2 gm/dl (10.1-14.3) 06/13/18 05:43 Hct 36.7 % (30.3-42.9) 06/13/18 05:43 MCV 85 fl (79-97) 06/13/18 05:43 MCH 28 pg (28-32) 06/13/18 05:43 MCHC 33 % (30-34) 06/13/18 05:43 RDW 15.0 % (13.2-15.2) 06/13/18 05:43 Plt Count 373 K/mm3 (140-440) 06/13/18 05:43 Lymph % (Auto) 40.1 % (13.4-35.0) H 06/12/18 05:18 [place] % (Auto) 8.4 % (0.0-7.3) H 06/12/18 05:18 Eos % (Auto) 3.9 % (0.0-4.3) 06/12/18 05:18 Baso % (Auto) 1.0 % (0.0-1.8) 06/12/18 05:18 Lymph # 2.2 K/mm3 (1.2-5.4) 06/12/18 05:18 [place] # 0.5 K/mm3 (0.0-0.8) 06/12/18 05:18 Eos # 0.2 K/mm3 (0.0-0.4) 06/12/18 05:18 Baso # 0.1 K/mm3 (0.0-0.1) 06/12/18 05:18 Add Manual Diff Complete 06/10/18 13:19 Total Counted 100 06/10/18 13:19 Seg Neutrophils % 46.6 % (40.0-70.0) 06/12/18 05:18 Seg Neuts % (Manual) 61.0 % (40.0-70.0) 06/10/18 13:19 Band Neutrophils % 2.0 % 06/10/18 13:19 Lymphocytes % (Manual) 23.0 % (13.4-35.0) 06/10/18 13:19 Reactive Lymphs % (Man) 0 % 06/10/18 13:19 Monocytes % (Manual) 11.0 % (0.0-7.3) H 06/10/18 13:19 Eosinophils % (Manual) 3.0 % (0.0-4.3) 06/10/18 13:19 Basophils % (Manual) 0 % (0.0-1.8) 06/10/18 13:19 Metamyelocytes % 0 % 06/10/18 13:19 Myelocytes % 0 % 06/10/18 13:19 Promyelocytes % 0 % 06/10/18 13:19 Blast Cells % 0 % 06/10/18 13:19 Nucleated RBC % Not Reportable 06/10/18 13:19 Seg Neutrophils # 2.6 K/mm3 (1.8-7.7) 06/12/18 05:18 Seg Neutrophils # Man 3.8 K/mm3 (1.8-7.7) 06/10/18 13:19 Band Neutrophils # 0.1 K/mm3 06/10/18 13:19 Lymphocytes # (Manual) 1.4 K/mm3 (1.2-5.4) 06/10/18 13:19 Abs React Lymphs (Man) 0.0 K/mm3 06/10/18 13:19 Monocytes # (Manual) 0.7 K/mm3 (0.0-0.8) 06/10/18 13:19 Eosinophils # (Manual) 0.2 K/mm3 (0.0-0.4) 06/10/18 13:19 Basophils # (Manual) 0.0 K/mm3 (0.0-0.1) 06/10/18 13:19 Metamyelocytes # 0.0 K/mm3 06/10/18 13:19 Myelocytes # 0.0 K/mm3 06/10/18 13:19 Promyelocytes # 0.0 K/mm3 06/10/18 13:19 Blast Cells # 0.0 K/mm3 06/10/18 13:19 WBC Morphology Not Reportable 06/10/18 13:19 Hypersegmented Neuts Not Reportable 06/10/18 13:19 Hyposegmented Neuts Not Reportable 06/10/18 13:19 Hypogranular Neuts Not Reportable 06/10/18 13:19 Smudge Cells Not Reportable 06/10/18 13:19 Toxic Granulation Not Reportable 06/10/18 13:19 Toxic Vacuolation Not Reportable 06/10/18 13:19 Dohle Bodies Not Reportable 06/10/18 13:19 Pelger-Huet Anomaly Not Reportable 06/10/18 13:19 Maryann Rods Not Reportable 06/10/18 13:19 Platelet Estimate Cons 06/10/18 13:19 Clumped Platelets Not Reportable 06/10/18 13:19 Plt Clumps, EDTA Not Reportable 06/10/18 13:19 Large Platelets Few 06/10/18 13:19 Giant Platelets Not Reportable 06/10/18 13:19 Platelet Satelliting Not Reportable 06/10/18 13:19 Plt Morphology Comment Not Reportable 06/10/18 13:19 RBC Morphology Normal 06/10/18 13:19 Dimorphic RBCs Not Reportable 06/10/18 13:19 Polychromasia Not Reportable 06/10/18 13:19 Hypochromasia Not Reportable 06/10/18 13:19 Poikilocytosis Not Reportable 06/10/18 13:19 Anisocytosis Not Reportable 06/10/18 13:19 Microcytosis Not Reportable 06/10/18 13:19 Macrocytosis Not Reportable 06/10/18 13:19 Spherocytes Not Reportable 06/10/18 13:19 Pappenheimer Bodies Not Reportable 06/10/18 13:19 Sickle Cells Not Reportable 06/10/18 13:19 Target Cells Not Reportable 06/10/18 13:19 Tear Drop Cells Not Reportable 06/10/18 13:19 Ovalocytes Not Reportable 06/10/18 13:19 Helmet Cells Not Reportable 06/10/18 13:19 [place] Bodies Not Reportable 06/10/18 13:19 [place] Rings Not Reportable 06/10/18 13:19 [place] Cells Not Reportable 06/10/18 13:19 Bite Cells Not Reportable 06/10/18 13:19 Crenated Cell Not Reportable 06/10/18 13:19 Elliptocytes Not Reportable 06/10/18 13:19 Acanthocytes (Spur) Not Reportable 06/10/18 13:19 Rouleaux Not Reportable 06/10/18 13:19 Hemoglobin C Crystals Not Reportable 06/10/18 13:19 Schistocytes Not Reportable 06/10/18 13:19 Malaria parasites Not Reportable 06/10/18 13:19 Ricky Bodies Not Reportable 06/10/18 13:19 Hem Pathologist Commnt No 06/10/18 13:19 PT 17.9 Sec. (12.2-14.9) H 06/10/18 13:27 INR 1.38 (0.87-1.13) H 06/10/18 13:27 APTT 37.9 Sec. (24.2-36.6) H 06/10/18 13:27 D-Dimer 506.55 ng/mlDDU (0-234) H 06/10/18 13:27 Sodium 141 mmol/L (137-145) 06/13/18 05:43 Potassium 3.8 mmol/L (3.6-5.0) 06/13/18 05:43 Chloride 105.1 mmol/L (98-107) 06/13/18 05:43 Carbon Dioxide 28 mmol/L (22-30) 06/13/18 05:43 Anion Gap 12 mmol/L 06/13/18 05:43 BUN 19 mg/dL (7-17) H 06/13/18 05:43 Creatinine 0.8 mg/dL (0.7-1.2) 06/13/18 05:43 Estimated GFR > 60 ml/min 06/13/18 05:43 BUN/Creatinine Ratio 24 % 06/13/18 05:43 Glucose 95 mg/dL (65-100) 06/13/18 05:43 POC Glucose 81 (70-105) 06/13/18 07:44 Calcium 9.0 mg/dL (8.4-10.2) 06/13/18 05:43 Magnesium 1.60 mg/dL (1.7-2.3) L 06/13/18 05:43 Total Bilirubin 0.20 mg/dL (0.1-1.2) 06/12/18 05:30 Direct Bilirubin < 0.2 mg/dL (0-0.2) 06/10/18 13:19 Indirect Bilirubin 0.0 mg/dL 06/10/18 13:19 AST 14 units/L (5-40) 06/12/18 05:30 ALT 10 units/L (7-56) 06/12/18 05:30 Alkaline Phosphatase 72 units/L (35-129) 06/12/18 05:30 Troponin T < 0.010 ng/mL (0.00-0.029) 06/13/18 05:43 Total Protein 4.4 g/dL (6.3-8.2) L D 06/12/18 05:30 Albumin 2.4 g/dL (3.9-5) L 06/12/18 05:30 Albumin/Globulin Ratio 1.2 % 06/12/18 05:30 Active Medications - Current Medications Current Medications: Generic Name Dose Route Start Last Admin Trade Name Freq PRN Reason Stop Dose Admin Acetaminophen 650 mg 06/11/18 00:38 06/12/18 19:28 Tylenol PO 650 mg Q4H PRN Administration Pain MILD(1-3)/Fever >100.5/CARMICHAEL Amlodipine Besylate 10 mg 06/11/18 22:00 06/12/18 23:34 Norvasc PO Not Given HS DIMITRI Dextrose 50 ml 06/10/18 22:23 D50w (25gm) Syringe IV PRN PRN Hypoglycemia Gabapentin 300 mg 06/11/18 08:00 06/13/18 08:38 Neurontin PO Not Given TID [facility] Insulin Human Lispro 0 unit 06/11/18 07:30 06/13/18 08:37 Humalog SUB-Q Not Given ACHS [facility] Protocol Ondansetron HCl 4 mg 06/11/18 00:38 Zofran IV Q8H PRN Nausea And Vomiting Oxycodone/Acetaminophen 1 tab 06/11/18 00:38 06/12/18 14:19 Percocet 5/325 PO 1 tab Q6H PRN Administration Pain, Moderate (4-6) Pravastatin Sodium 20 mg 06/11/18 22:00 06/12/18 21:33 Pravachol PO 20 mg QHS DIMITRI Administration Rivaroxaban 20 mg 06/13/18 18:00 Xarelto PO QPM [facility] Protocol Sertraline HCl 50 mg 06/11/18 10:00 06/12/18 10:25 Zoloft PO 50 mg QAM DIMITRI Administration Sodium Chloride 10 ml 06/11/18 10:00 06/12/18 23:36 Sodium Chloride Flush Syringe 10 Ml IV Not Given BID DIMITRI Sodium Chloride 10 ml 06/11/18 00:38 Sodium Chloride Flush Syringe 10 Ml IV PRN PRN LINE FLUSH Zolpidem Tartrate 5 mg 06/11/18 00:32 Ambien PO QHS PRN Sleep Nutrition/Malnutrition Assess - Dietary Evaluation Nutrition/Malnutrition Findings: Nutrition Notes Start: 06/11/18 10:19 Freq: Status: Active Protocol: Document 06/11/18 10:19 LP (Rec: 06/11/18 10:22 LP [email or web address]) Nutrition Notes Need for Assessment generated from: traffic control supervisor,MST Initial or Follow up Brief Note Current Diagnosis Acute Kidney Injury,Diabetes, Hypertension,Heart Failure Other Pertinent Diagnosis Gastroparesis Current Diet Consistent CHO Labs/Tests K 3 Pertinent Medications Lasix Height 5 ft 3 in Weight 83 kg [place] Body Weight (kg) 52.27 BMI 32.4 Subjective/Other Information Screen for MST. Pt not in room at time of visit. Burn Absent Trauma Absent Is patient on ventilator? No Is Patient Ambulatory and/or Out of Bed Yes REE-([facility]-ambulatory/OOB) [ [id number] [id number]] Calculation Used for Recommendations [facility] Additional Notes Protein needs are 83-100g (1-1 .2g/kg) Fluid needs are 1ml/kcal Nutrition Intervention Change Diet Order: Cardiac consistent CHO Goal #1 Meet at least 80% of kcal and protein needs Anticipated Discharge Needs: cardiac/consistent CHO Follow-Up By: 06/14/18 Additional Comments Follow for assessment
--- NOTE | 2018-06-13 11:36 | Discharge Summary ---
Providers - Providers Date of Admission: 06/10/18 15:14 Date of discharge: 06/13/18 Attending physician: OBDULIA BAIRD 06/11/18 13:29 Consult to Physician [CONS] Routine Comment: Consulting Provider: ARGELIA DEY Physician Instructions: Reason For Exam: recurrent syncope 06/12/18 13:21 Consult to Dietitian/Nutrition [CONS] Routine Physician Instructions: Reason For Exam: Reason for Consult: Write/Manage Tube Feeding 06/13/18 11:24 Occupational Therapy Evaluate and Treat [CONS] Routine Reason For Exam: ADLs evaluation Comment: Physical Therapy Evaluation and Treat [CONS] Routine Reason For Exam: gait evaluation/ambulatory dysfunction Comment: [facility] Condition: Stable Hospital course: Patient is a 63 yo woman with a history of hypertension, type 2 DM, gastroparesis s/p PEG tube, CHF, DVT on Xarelto, depression, peripheral neuropahty on gabapentin and dyslipidemia who [facility] after recurrent syncopal episode. -Syncope, work up in progress: check orthostatic vitals, 2D ECHO done but not read yet, tele monitoring, no events x [address] head negative. consult Neurology -ARF, atn + vasomotor nephropathy, poa: treat with IVF, improved, monitor closely -Hypotension: ivf and hold antihypertensives -Gastroparesis with PEG tube in place: consult Leather Cleaner for tube feedings -Type 2 DM: ssi, accucheck, ada -H/o DVT on Xarelto with recurrent falls: d/c anticoagulation -Hyponatremia: ivf and monitor closely -Hypokalemia: replete and monitor closely -Hypomagensemia: ivf and monitor closely -Severe malnutrition with PEG tube: consulted Leather Cleaner -Elevated D-Dimer. poa: ordered venous leg doppler and CTA chest negative for PE DVT prophylaxis: scd due to falls full code 06/10/18, patient fell again, ?another syncopal episode and was given fioricet for headaches so Stress test was cancelled, repeat CT head negative for any acute event. She went down for stress test today and it was canceled because she received Fioricet. Now stress test re-ordered for Wednesday. 06/11/18: ordered cta chest, leg doppler and orthostatic vitals 06/12/18: cta chest still pending, was ordered stat, called Radiology dept, no answer then called supervisor mattress and boxsprings and spoke with Cherry. Bilateral venous leg doppler negative for DVT, Orthostatic vitals still pending, spoke with supervisor mattress and boxsprings and she made sure it was read, CTA chest negative for PE Stress tomorrow, also consult verification rep for tube feedings. Also, patient says she was just at [facility], will request records. 06/13/18: stress test today. Ordered PT for ambulatory dysfunction. Disposition: if stress test negative possible discharge today depending on PT recommendation. Disposition: DC/TX-06 HOME [facility]ER [facility] Time spent for discharge: 34 minutes Core Measure Documentation - Palliative Care Palliative Care/ Comfort Measures: Not Applicable - Core Measures Any of the following diagnoses?: none - VTE Discharge Requirements Deep Vein Thrombosis/Pulmonary Embolism Present on Admission: No Has pt received <5 days of overlap therapy or INR<2.0: No Anticoagulant overlap therapy prescribed at discharge: No Contraindication No Overlap Therapy order at DC: Not Indicated Exam - Physical Exam Narrative exam: Gen: WDWN, NAD, Awake, Alert, Orientated HEENT: >cut on left eyebrow lateral corner healing, EOMI, PERRL, OP Clear Neck: supple, no adenopathy, no thyromegaly, no JVD CVS/Heart: RRR, normal S1S2, pulses present bilaterally Chest/Lungs: CTA B, Symmetrical chest expansion, good air entry bilaterally GI/Abdomen: soft, NTND, PEG tube in place, good bowel sounds, no guarding or rebound /Bladder: no suprapubic tenderness, no CVA or paraspinal tenderness Extermity/Skin: no c/c/e, no obvious rash MSK: FROM x 4 Neuro: CN 2-12 grossly intact, no new focal deficits Psych: calm - Constitutional Vitals: Temp Pulse Resp BP Pulse Ox 97.8 F 88 18 98/61 94 06/13/18 07:37 06/13/18 07:37 06/13/18 07:37 06/13/18 07:37 06/13/18 07:37 Plan Activity: up only with assistance, fall precautions, other (no strenous activity ) Diet: per dietitian instruction (tube feeding) Special Instructions: record daily BP diary, record blood sugar diary Follow up with: COURTNEY LGOVER MD [Primary Care Provider] - 3-5 Days ARGELIA DEY MD [Staff Physician] - 7 Days Prescriptions: oxyCODONE /ACETAMINOPHEN [Percocet 5/325 mg] 1 tab PO Q6H PRN #15 tablet PRN Reason: Pain, Moderate (4-6)
[2018-06-13] MEDS: ZOLOFT PO SCH (13:14)
[2018-06-13] MEDS: SODIUM CHLORIDE FLUSH SYRINGE 10 ML IV SCH ×2 (13:17→21:13)
[2018-06-13] MEDS: XARELTO PO SCH (18:29)
[2018-06-13] MEDS: NORVASC PO SCH (21:12)
[2018-06-13] MEDS: PRAVACHOL PO SCH (21:13)
--- NOTE | 2018-06-13 23:51 | Treadmill Report ---
SINGLE ISOTOPE DUAL STUDY MYOCARDIAL PERFUSION SCAN REPORT REFERRING PHYSICIAN: Chelsie Ceja MD, hospitalist Seen and dictated by Yuko Vigil MD DESCRIPTION OF PROCEDURE: The patient received 10 mCi of technetium 99m-Myoview intravenously under resting conditions. Resting myocardial perfusion scan was done. Subsequently, the patient underwent Lexiscan stress test as per the protocol. During Lexiscan stress, the patient received 28 mCi of technetium 99m-Myoview intravenously. After 30-60 minutes, post stress images were done. Computerized reconstruction of the images was performed for analysis. The post-stress images revealed uniform distribution of the radiopharmaceutical in the left ventricular myocardium. Transient ischemic dilatation of the left ventricle was seen in stress images with TID ratio of 1.2. Cinematic display of the gated study did not reveal any wall motion abnormality. The left ventricular ejection fraction was normal and was calculated to be 66%. The resting images were normal. CONCLUSIONS: 1. Transient ischemic dilatation of the left ventricular stress images with TID ratio of 1.2 -- this is of uncertain significance, particularly with the absence of significant perfusion defects. 2. Normal resting and stress myocardial perfusion scan images after the patient underwent Lexiscan stress test. 3. No wall motion abnormality. 4. Normal left ventricular ejection fraction of 66%. JOB# [id number] [facility]/AISLINN MTDCandice
[2018-06-14] MEDS: PERCOCET 5/325 PO PRN (05:36)
[2018-06-14] MEDS: HumaLOG SUB-Q SCH ×4 (08:24→22:59)
[2018-06-14] MEDS: NEURONTIN PO SCH ×3 (08:25→20:54)
[2018-06-14] MEDS: ZOLOFT PO SCH (09:13)
[2018-06-14] MEDS: SODIUM CHLORIDE FLUSH SYRINGE 10 ML IV SCH (09:13)
[2018-06-14] MEDS ORDERED: MAGNESIUM SULFATE 4GM/100ML 4 GM/100 ML BAG IV ONE (12:27)
--- NOTE | 2018-06-14 12:27 | Discharge Summary ---
Providers - Providers Date of Admission: 06/10/18 15:14 Attending physician: HI RENE MD 06/11/18 13:29 Consult to Physician [CONS] Routine Comment: Consulting Provider: ARGELIA DEY Physician Instructions: Reason For Exam: recurrent syncope 06/12/18 13:21 Consult to Dietitian/Nutrition [CONS] Routine Physician Instructions: Reason For Exam: Reason for Consult: Write/Manage Tube Feeding 06/13/18 11:24 Occupational Therapy Evaluate and Treat [CONS] Routine Comment: Reason For Exam: ADLs evaluation Physical Therapy Evaluation and Treat [CONS] Routine Comment: Reason For Exam: gait evaluation/ambulatory dysfunction [facility] Condition: Stable Hospital course: Patient is a 63 yo woman with a history of hypertension, type 2 DM, gastroparesis s/p PEG tube, CHF, DVT on Xarelto, depression, peripheral neuropahty on gabapentin and dyslipidemia who presents to [facility] ED after recurrent syncopal episode. -Syncope, work up in progress: check orthostatic vitals, 2D ECHO done but not read yet, tele monitoring, no events x [address] head negative. consult Neurology -ARF, atn + vasomotor nephropathy, poa: treat with IVF, improved, monitor closely -Hypotension: ivf and hold antihypertensives -Gastroparesis with PEG tube in place: consult Motor Vehicles Supervisor for tube feedings -Type 2 DM: ssi, accucheck, ada -H/o DVT on Xarelto with recurrent falls: d/c anticoagulation -Hyponatremia: ivf and monitor closely -Hypokalemia: replete and monitor closely -Hypomagensemia: ivf and monitor closely -Severe malnutrition with PEG tube: consulted Motor Vehicles Supervisor -Elevated D-Dimer. poa: ordered venous leg doppler and CTA chest negative for PE DVT prophylaxis: scd due to falls full code 06/10/18, patient fell again, ?another syncopal episode and was given fioricet for headaches so Stress test was cancelled, repeat CT head negative for any acute event. She went down for stress test today and it was canceled because she received Fioricet. Now stress test re-ordered for Wednesday. 06/11/18: ordered cta chest, leg doppler and orthostatic vitals 06/12/18: cta chest still pending, was ordered stat, called Radiology dept, no answer then called fiber optics supervisor and spoke with Cherry. Bilateral venous leg doppler negative for DVT, Orthostatic vitals still pending, spoke with fiber optics supervisor and she made sure it was read, CTA chest negative for PE Stress tomorrow, also consult staffing clerk for tube feedings. Also, patient says she was just at [facility], will request records. 06/13/18: stress test today. Ordered PT for ambulatory dysfunction. Disposition: continue inpatient care, if stress test negative possible discharge today depending on PT recommendation. Disposition: DC/TX-[facility] Time spent for discharge: 33 mins Core Measure Documentation - Palliative Care Palliative Care/ Comfort Measures: Not Applicable - Core Measures Any of the following diagnoses?: none Exam - Constitutional Vitals: Temp Pulse Resp BP Pulse Ox 97.9 F 83 18 127/84 96 06/14/18 07:19 06/14/18 10:00 06/14/18 07:56 06/14/18 07:19 06/14/18 07:56 General appearance: Present: no acute distress, well-nourished - EENT Eyes: Present: PERRL ENT: hearing intact, clear oral mucosa - Neck Neck: Present: supple, normal ROM - Respiratory Respiratory effort: normal Respiratory: bilateral: CTA - Cardiovascular Heart Sounds: Present: S1 & S2. Absent: rub, click - Extremities Extremities: pulses symmetrical, No edema Peripheral Pulses: within normal limits - Abdominal General gastrointestinal: Present: soft, non-tender, non-distended, normal bowel sounds Female genitourinary: Present: normal - Integumentary Integumentary: Present: clear, warm, dry - Musculoskeletal Musculoskeletal: gait normal, strength equal bilaterally - Psychiatric Psychiatric: appropriate mood/affect, intact judgment & insight - Neurologic Neurologic: CNII-XII intact, moves all extremities Plan Follow up with: ARGELIA DEY MD [Staff Physician] - 7 Days VERDON COURTNEY RAE MD [Primary Care Provider] - 3-5 Days Prescriptions: oxyCODONE /ACETAMINOPHEN [Percocet 5/325 mg] 1 tab PO Q6H PRN #15 tablet PRN Reason: Pain, Moderate (4-6)
--- NOTE | 2018-06-14 12:29 | Progress Note ---
Assessment and Plan Assessment and plan: Patient is a 63 yo woman with a history of hypertension, type 2 DM, gastroparesis s/p PEG tube, CHF, DVT on Xarelto, depression, peripheral neuropahty on gabapentin and dyslipidemia who presents to [facility] ED after recurrent syncopal episode. * Brain imaging has been unremarkable, she received neurology consult, neurology believes that she is likely having seizures, neurology to see her again today * Stress test was done, per cardiology does negative, no further cardiac workup was recommended * The patient developed hypotension which resulted IV fluids and reducing her antihypertensives * The patient has a GJ tube due to gastroparesis, continue tube feeding * Electrolytes have been repleted namely potassium and magnesium. Hyponatremia was treated with hypotonic IV fluid * The patient had an elevated d-dimer, lower extremity Dopplers and CT angiogram chest were negative * The patient has a history of DVT, she was on anticoagulants, held during syncope workup Diagnoses Syncope, likely due to seizures Acute renal failure due to vasomotor nephropathy Hypotension, resolved with IV fluids, due to dehydration Gastroparesis, chronic Type 2 diabetes History of DVT moderate malnutrition History Interval history: Review of systems Constitutional: No fevers, no malaise, no joint pains CVS: No chest pain, no orthopnea, no dyspnea on exertion, no pedal edema GI: No abdominal pain, no diarrhea, no vomiting, no constipation Respiratory: no wheezing, no coughing Hospitalist Physical - Physical exam Narrative exam: General.: Appears well, no distress, nontoxic HEENT: Moist mucous membranes, extraocular muscles intact, no lymphadenopathy Neck: supple Cardiac: S1-S2 heard Lungs: clear to auscultation bilaterally Abdomen: soft , nontender, nondistended, bowel sounds positive Extremities: no edema clubbing or cyanosis Skin: no rash or lesions Neurologic: no gross focal deficits Psych: calm, and cooperative - Constitutional Vitals: Temp Pulse Resp BP Pulse Ox 97.9 F 83 18 127/84 96 06/14/18 07:19 06/14/18 10:00 06/14/18 07:56 06/14/18 07:19 06/14/18 07:56 General appearance: Present: no acute distress, well-nourished Results - Labs CBC & Chem 7: 06/13/18 05:43 06/13/18 05:43 Labs: Laboratory Last Values WBC 4.7 K/mm3 (4.5-11.0) 06/13/18 05:43 RBC 4.33 M/mm3 (3.65-5.03) 06/13/18 05:43 Hgb 12.2 gm/dl (10.1-14.3) 06/13/18 05:43 Hct 36.7 % (30.3-42.9) 06/13/18 05:43 MCV 85 fl (79-97) 06/13/18 05:43 MCH 28 pg (28-32) 06/13/18 05:43 MCHC 33 % (30-34) 06/13/18 05:43 RDW 15.0 % (13.2-15.2) 06/13/18 05:43 Plt Count 373 K/mm3 (140-440) 06/13/18 05:43 Lymph % (Auto) 40.1 % (13.4-35.0) H 06/12/18 05:18 [place] % (Auto) 8.4 % (0.0-7.3) H 06/12/18 05:18 Eos % (Auto) 3.9 % (0.0-4.3) 06/12/18 05:18 Baso % (Auto) 1.0 % (0.0-1.8) 06/12/18 05:18 Lymph # 2.2 K/mm3 (1.2-5.4) 06/12/18 05:18 [place] # 0.5 K/mm3 (0.0-0.8) 06/12/18 05:18 Eos # 0.2 K/mm3 (0.0-0.4) 06/12/18 05:18 Baso # 0.1 K/mm3 (0.0-0.1) 06/12/18 05:18 Add Manual Diff Complete 06/10/18 13:19 Total Counted 100 06/10/18 13:19 Seg Neutrophils % 46.6 % (40.0-70.0) 06/12/18 05:18 Seg Neuts % (Manual) 61.0 % (40.0-70.0) 06/10/18 13:19 Band Neutrophils % 2.0 % 06/10/18 13:19 Lymphocytes % (Manual) 23.0 % (13.4-35.0) 06/10/18 13:19 Reactive Lymphs % (Man) 0 % 06/10/18 13:19 Monocytes % (Manual) 11.0 % (0.0-7.3) H 06/10/18 13:19 Eosinophils % (Manual) 3.0 % (0.0-4.3) 06/10/18 13:19 Basophils % (Manual) 0 % (0.0-1.8) 06/10/18 13:19 Metamyelocytes % 0 % 06/10/18 13:19 Myelocytes % 0 % 06/10/18 13:19 Promyelocytes % 0 % 06/10/18 13:19 Blast Cells % 0 % 06/10/18 13:19 Nucleated RBC % Not Reportable 06/10/18 13:19 Seg Neutrophils # 2.6 K/mm3 (1.8-7.7) 06/12/18 05:18 Seg Neutrophils # Man 3.8 K/mm3 (1.8-7.7) 06/10/18 13:19 Band Neutrophils # 0.1 K/mm3 06/10/18 13:19 Lymphocytes # (Manual) 1.4 K/mm3 (1.2-5.4) 06/10/18 13:19 Abs React Lymphs (Man) 0.0 K/mm3 06/10/18 13:19 Monocytes # (Manual) 0.7 K/mm3 (0.0-0.8) 06/10/18 13:19 Eosinophils # (Manual) 0.2 K/mm3 (0.0-0.4) 06/10/18 13:19 Basophils # (Manual) 0.0 K/mm3 (0.0-0.1) 06/10/18 13:19 Metamyelocytes # 0.0 K/mm3 06/10/18 13:19 Myelocytes # 0.0 K/mm3 06/10/18 13:19 Promyelocytes # 0.0 K/mm3 06/10/18 13:19 Blast Cells # 0.0 K/mm3 06/10/18 13:19 WBC Morphology Not Reportable 06/10/18 13:19 Hypersegmented Neuts Not Reportable 06/10/18 13:19 Hyposegmented Neuts Not Reportable 06/10/18 13:19 Hypogranular Neuts Not Reportable 06/10/18 13:19 Smudge Cells Not Reportable 06/10/18 13:19 Toxic Granulation Not Reportable 06/10/18 13:19 Toxic Vacuolation Not Reportable 06/10/18 13:19 Dohle Bodies Not Reportable 06/10/18 13:19 Pelger-Huet Anomaly Not Reportable 06/10/18 13:19 Maryann Rods Not Reportable 06/10/18 13:19 Platelet Estimate Cons 06/10/18 13:19 Clumped Platelets Not Reportable 06/10/18 13:19 Plt Clumps, EDTA Not Reportable 06/10/18 13:19 Large Platelets Few 06/10/18 13:19 Giant Platelets Not Reportable 06/10/18 13:19 Platelet Satelliting Not Reportable 06/10/18 13:19 Plt Morphology Comment Not Reportable 06/10/18 13:19 RBC Morphology Normal 06/10/18 13:19 Dimorphic RBCs Not Reportable 06/10/18 13:19 Polychromasia Not Reportable 06/10/18 13:19 Hypochromasia Not Reportable 06/10/18 13:19 Poikilocytosis Not Reportable 06/10/18 13:19 Anisocytosis Not Reportable 06/10/18 13:19 Microcytosis Not Reportable 06/10/18 13:19 Macrocytosis Not Reportable 06/10/18 13:19 Spherocytes Not Reportable 06/10/18 13:19 Pappenheimer Bodies Not Reportable 06/10/18 13:19 Sickle Cells Not Reportable 06/10/18 13:19 Target Cells Not Reportable 06/10/18 13:19 Tear Drop Cells Not Reportable 06/10/18 13:19 Ovalocytes Not Reportable 06/10/18 13:19 Helmet Cells Not Reportable 06/10/18 13:19 [place] Bodies Not Reportable 06/10/18 13:19 [place] Rings Not Reportable 06/10/18 13:19 [place] Cells Not Reportable 06/10/18 13:19 Bite Cells Not Reportable 06/10/18 13:19 Crenated Cell Not Reportable 06/10/18 13:19 Elliptocytes Not Reportable 06/10/18 13:19 Acanthocytes (Spur) Not Reportable 06/10/18 13:19 Rouleaux Not Reportable 06/10/18 13:19 Hemoglobin C Crystals Not Reportable 06/10/18 13:19 Schistocytes Not Reportable 06/10/18 13:19 Malaria parasites Not Reportable 06/10/18 13:19 Ricky Bodies Not Reportable 06/10/18 13:19 Hem Pathologist Commnt No 06/10/18 13:19 PT 17.9 Sec. (12.2-14.9) H 06/10/18 13:27 INR 1.38 (0.87-1.13) H 06/10/18 13:27 APTT 37.9 Sec. (24.2-36.6) H 06/10/18 13:27 D-Dimer 506.55 ng/mlDDU (0-234) H 06/10/18 13:27 Sodium 141 mmol/L (137-145) 06/13/18 05:43 Potassium 3.8 mmol/L (3.6-5.0) 06/13/18 05:43 Chloride 105.1 mmol/L (98-107) 06/13/18 05:43 Carbon Dioxide 28 mmol/L (22-30) 06/13/18 05:43 Anion Gap 12 mmol/L 06/13/18 05:43 BUN 19 mg/dL (7-17) H 06/13/18 05:43 Creatinine 0.8 mg/dL (0.7-1.2) 06/13/18 05:43 Estimated GFR > 60 ml/min 06/13/18 05:43 BUN/Creatinine Ratio 24 % 06/13/18 05:43 Glucose 95 mg/dL (65-100) 06/13/18 05:43 POC Glucose 86 (70-105) 06/14/18 11:24 Calcium 9.0 mg/dL (8.4-10.2) 06/13/18 05:43 Magnesium 1.60 mg/dL (1.7-2.3) L 06/13/18 05:43 Total Bilirubin 0.20 mg/dL (0.1-1.2) 06/12/18 05:30 Direct Bilirubin < 0.2 mg/dL (0-0.2) 06/10/18 13:19 Indirect Bilirubin 0.0 mg/dL 06/10/18 13:19 AST 14 units/L (5-40) 06/12/18 05:30 ALT 10 units/L (7-56) 06/12/18 05:30 Alkaline Phosphatase 72 units/L (35-129) 06/12/18 05:30 Troponin T < 0.010 ng/mL (0.00-0.029) 06/13/18 05:43 Total Protein 4.4 g/dL (6.3-8.2) L D 06/12/18 05:30 Albumin 2.4 g/dL (3.9-5) L 06/12/18 05:30 Albumin/Globulin Ratio 1.2 % 06/12/18 05:30 Active Medications - Current Medications Current Medications: Generic Name Dose Route Start Last Admin Trade Name Freq PRN Reason Stop Dose Admin Acetaminophen 650 mg 06/11/18 00:38 06/12/18 19:28 Tylenol PO 650 mg Q4H PRN Administration Pain MILD(1-3)/Fever >100.5/CARMICHAEL Amlodipine Besylate 10 mg 06/11/18 22:00 06/13/18 21:12 Norvasc PO 10 mg HS DIMITRI Administration Dextrose 50 ml 06/10/18 22:23 D50w (25gm) Syringe IV PRN PRN Hypoglycemia Gabapentin 300 mg 06/11/18 08:00 06/14/18 08:25 Neurontin PO 300 mg TID DIMITRI Administration Insulin Human Lispro 0 unit 06/11/18 07:30 06/14/18 12:02 Humalog SUB-Q Not Given ACHS [facility] Protocol Ondansetron HCl 4 mg 06/11/18 00:38 Zofran IV Q8H PRN Nausea And Vomiting Oxycodone/Acetaminophen 1 tab 06/11/18 00:38 06/14/18 05:36 Percocet 5/325 PO 1 tab Q6H PRN Administration Pain, Moderate (4-6) Pravastatin Sodium 20 mg 06/11/18 22:00 06/13/18 21:13 Pravachol PO 20 mg QHS DIMITRI Administration Rivaroxaban 20 mg 06/13/18 18:00 06/13/18 18:29 Xarelto PO 20 mg QPM DIMITRI Administration Protocol Sertraline HCl 50 mg 06/11/18 10:00 06/14/18 09:13 Zoloft PO 50 mg QAM DIMITRI Administration Sodium Chloride 10 ml 06/11/18 10:00 06/14/18 09:13 Sodium Chloride Flush Syringe 10 Ml IV 10 ml BID DIMITRI Administration Sodium Chloride 10 ml 06/11/18 00:38 Sodium Chloride Flush Syringe 10 Ml IV PRN PRN LINE FLUSH Zolpidem Tartrate 5 mg 06/11/18 00:32 Ambien PO QHS PRN Sleep Nutrition/Malnutrition Assess - Dietary Evaluation Nutrition/Malnutrition Findings: Nutrition Notes Start: 06/11/18 10:19 Freq: Status: Active Protocol: Document 06/13/18 14:18 RM (Rec: 06/13/18 15:20 RM [id number]) Nutrition Notes Initial or Follow up Assessment Current Diagnosis Acute Kidney Injury,Diabetes, Hypertension,Heart Failure Other Pertinent Diagnosis Gastroparesis Current Diet Consistent CHO Labs/Tests Reviewed Pertinent Medications Reviewed Height 5 ft 3 in Weight 83 kg [place] Body Weight (kg) 52.27 BMI 32.4 Subjective/Other Information Consulted for malnutrition. Pt stated that she infuses RegenaStem brand Peptide 1.5 at 85 ml/hr at night from 7:30 pm to 4 am and eats bites of meals throughout the day. Stated that she has some with her. Stated that she has tried other tube feeding formulas and they cause her to vomit. Stated that Peptide 1.5 causes her to vomit the least. Admitted to constipation. Unsure of UBW but believes she has been losing weight. Pt stated that she is being discharged today. Burn Absent Trauma Absent #1 Nutrition Diagnosis Inadequate oral intake Etiology gastroparesis As Evidenced by Signs and Symptoms pt requiring enteral nutrition to meet nutritional needs Is patient on ventilator? No Is Patient Ambulatory and/or Out of Bed Yes REE-([place]-ambulatory/OOB) [ 1747.369 NUTR.[id number]] Kcal/Kg value to use for calculation 17 Approximate Energy Requirements Using 1411 kcal/Kg Calculation Used for Recommendations [facility] Additional Notes Protein needs are 83-100g (1-1 .2g/kg) Fluid needs are 1ml/kcal Nutrition Intervention Change Diet Order: Continue current Nutrition Support: Continue Peptide 1.5 at 85 ml/ hr from 8pm to 4 am. If patient runs out of Peptide 1.5 substitute with Osmolite 1.5 at 85 ml/hr from 8pm to 4am with 150 mls q 4 hrs throughout the day. This would provide 1020 kcal and 43 g pro daily. Goal #1 Meet at least 75% of kcal and protein needs Anticipated Discharge Needs: cardiac/consistent CHO Follow-Up By: 06/16/18 Additional Comments Follow for TF tolerance, POC
[2018-06-14] MEDS ORDERED: PANCREAZE DR 10,500 UNIT FEEDTUBE PRN (13:36)
[2018-06-14] MEDS ORDERED: SIMPLE SYRUP FEEDTUBE PRN ×2 (13:36)
[2018-06-14] MEDS ORDERED: SODIUM BICARBONATE FEEDTUBE PRN (13:36)
--- NOTE | 2018-06-14 16:21 | Progress Note ---
Subjective Date of service: 06/14/18 Interval history: spoke with Dr. Ceja given hx I would recommend tx with johnniebritt at time of discharge can have EEG as outpatient Objective - Vital Sign Vital Signs - 12hr 06/14/18 06/14/18 06/14/18 07:19 07:56 10:00 Temperature 97.9 F Pulse Rate 112 H 83 Pulse Rate [ 112 H Right Brachial] Respiratory 18 18 Rate Blood Pressure 127/84 O2 Sat by Pulse 96 96 Oximetry - Laboratory Findings CBC and BMP: 06/13/18 05:43 06/13/18 05:43 Abnormal Lab Findings: Abnormal Labs 06/10/18 06/10/18 06/10/18 13:19 13:19 13:27 Lymph % (Auto) [place] % (Auto) Monocytes % (Manual) 11.0 H PT 17.9 H INR 1.38 H APTT 37.9 H D-Dimer 506.55 H Sodium Potassium Chloride Carbon Dioxide BUN Creatinine Glucose POC Glucose Magnesium Total Protein 5.9 L Albumin 2.4 L 06/10/18 06/11/18 06/11/18 13:27 04:59 04:59 Lymph % (Auto) [place] % (Auto) Monocytes % (Manual) PT INR APTT D-Dimer Sodium 135 L Potassium 3.0 L Chloride 94.1 L 97.2 L Carbon Dioxide 31 H BUN 40 H 32 H Creatinine 1.5 H Glucose 120 H POC Glucose Magnesium 1.60 L 2.50 H Total Protein Albumin 06/11/18 06/12/18 06/12/18 11:52 05:18 05:30 Lymph % (Auto) 40.1 H [place] % (Auto) 8.4 H Monocytes % (Manual) PT INR APTT D-Dimer Sodium Potassium 3.5 L Chloride Carbon Dioxide BUN 24 H Creatinine Glucose POC Glucose 110 H Magnesium Total Protein 4.4 L D Albumin 2.4 L 06/12/18 06/13/18 16:19 05:43 Lymph % (Auto) [place] % (Auto) Monocytes % (Manual) PT INR APTT D-Dimer Sodium Potassium Chloride Carbon Dioxide BUN 19 H Creatinine Glucose POC Glucose 118 H Magnesium 1.60 L Total Protein Albumin
[2018-06-14] MEDS: TYLENOL PO PRN (17:34)
[2018-06-14] MEDS: XARELTO PO SCH (17:35)
[2018-06-14] MEDS: PRAVACHOL PO SCH (21:10)
[2018-06-14] MEDS: NORVASC PO SCH (22:02)
[2018-06-15] MEDS: SODIUM CHLORIDE FLUSH SYRINGE 10 ML IV SCH ×3 (04:55→21:07)
[2018-06-15] MEDS: HumaLOG SUB-Q SCH ×4 (08:02→21:37)
[2018-06-15] MEDS: NEURONTIN PO SCH ×4 (08:05→21:06)
[2018-06-15] MEDS: ZOLOFT PO SCH (09:54)
--- NOTE | 2018-06-15 14:12 | Event Note ---
Date: 06/15/18 Asked to see patient for clogged G-tube. On exam, patient has gastrojejunostomy tube with J-tube portion clogged. This tube was placed at [facility] in October 2017 for gastroparesis. Patient is routinely followed up by GI at [facility]. She cannot tolerate tube feedings via G-tube since it causes abdominal pain. She is on Xarelto. Case discussed with Dr. Williamson, interventional radiology. They are able to exchange GJ tube over a wire and will therefore defer to them. We'll be available for further consultation if required.
--- NOTE | 2018-06-15 15:52 | Progress Note ---
Assessment and Plan Assessment and plan: Patient is a 63 yo woman with a history of hypertension, type 2 DM, gastroparesis s/p PEG tube, CHF, DVT on Xarelto, depression, peripheral neuropahty on gabapentin and dyslipidemia who presents to [facility] ED after recurrent syncopal episode. * Brain imaging has been unremarkable, she received neurology consult, neurology believes that she is likely having seizures, and have recommended antiseizure medications * Stress test was done, per cardiology does negative, no further cardiac workup was recommended * The patient developed hypotension which resulted IV fluids and reducing her antihypertensives * The patient has a GJ tube due to gastroparesis, tube is not functioning at this time, IR consulted for replacement of G/J-tube * Electrolytes have been repleted namely potassium and magnesium. Hyponatremia was treated with hypotonic IV fluid * The patient had an elevated d-dimer, lower extremity Dopplers and CT angiogram chest were negative * The patient has a history of DVT, she was on anticoagulants, held during syncope workup, now on hold pending G-J tube Diagnoses Syncope, likely due to seizures Acute renal failure due to vasomotor nephropathy Hypotension, resolved with IV fluids, due to dehydration Gastroparesis, chronic Type 2 diabetes History of DVT moderate malnutrition History Interval history: Discussed with the nurse, patient's G-J-tube is not work functional at this time Review of systems Constitutional: No fevers, no malaise, no joint pains CVS: No chest pain, no orthopnea, no dyspnea on exertion, no pedal edema GI: No abdominal pain, no diarrhea, no vomiting, no constipation Respiratory: no wheezing, no coughing Hospitalist Physical - Physical exam Narrative exam: General.: Appears well, no distress, nontoxic HEENT: Moist mucous membranes, extraocular muscles intact, no lymphadenopathy Neck: supple Cardiac: S1-S2 heard Lungs: clear to auscultation bilaterally Abdomen: soft , nontender, nondistended, bowel sounds positive Extremities: no edema clubbing or cyanosis Skin: no rash or lesions Neurologic: no gross focal deficits Psych: calm, and cooperative - Constitutional Vitals: Temp Pulse Resp BP Pulse Ox 98.3 F 83 18 128/81 99 06/15/18 14:20 06/15/18 14:20 06/15/18 14:20 06/15/18 14:20 06/15/18 14:20 General appearance: Present: no acute distress, well-nourished Results - Labs CBC & Chem 7: 06/13/18 05:43 06/13/18 05:43 Labs: Laboratory Last Values WBC 4.7 K/mm3 (4.5-11.0) 06/13/18 05:43 RBC 4.33 M/mm3 (3.65-5.03) 06/13/18 05:43 Hgb 12.2 gm/dl (10.1-14.3) 06/13/18 05:43 Hct 36.7 % (30.3-42.9) 06/13/18 05:43 MCV 85 fl (79-97) 06/13/18 05:43 MCH 28 pg (28-32) 06/13/18 05:43 MCHC 33 % (30-34) 06/13/18 05:43 RDW 15.0 % (13.2-15.2) 06/13/18 05:43 Plt Count 373 K/mm3 (140-440) 06/13/18 05:43 Lymph % (Auto) 40.1 % (13.4-35.0) H 06/12/18 05:18 [place] % (Auto) 8.4 % (0.0-7.3) H 06/12/18 05:18 Eos % (Auto) 3.9 % (0.0-4.3) 06/12/18 05:18 Baso % (Auto) 1.0 % (0.0-1.8) 06/12/18 05:18 Lymph # 2.2 K/mm3 (1.2-5.4) 06/12/18 05:18 [place] # 0.5 K/mm3 (0.0-0.8) 06/12/18 05:18 Eos # 0.2 K/mm3 (0.0-0.4) 06/12/18 05:18 Baso # 0.1 K/mm3 (0.0-0.1) 06/12/18 05:18 Add Manual Diff Complete 06/10/18 13:19 Total Counted 100 06/10/18 13:19 Seg Neutrophils % 46.6 % (40.0-70.0) 06/12/18 05:18 Seg Neuts % (Manual) 61.0 % (40.0-70.0) 06/10/18 13:19 Band Neutrophils % 2.0 % 06/10/18 13:19 Lymphocytes % (Manual) 23.0 % (13.4-35.0) 06/10/18 13:19 Reactive Lymphs % (Man) 0 % 06/10/18 13:19 Monocytes % (Manual) 11.0 % (0.0-7.3) H 06/10/18 13:19 Eosinophils % (Manual) 3.0 % (0.0-4.3) 06/10/18 13:19 Basophils % (Manual) 0 % (0.0-1.8) 06/10/18 13:19 Metamyelocytes % 0 % 06/10/18 13:19 Myelocytes % 0 % 06/10/18 13:19 Promyelocytes % 0 % 06/10/18 13:19 Blast Cells % 0 % 06/10/18 13:19 Nucleated RBC % Not Reportable 06/10/18 13:19 Seg Neutrophils # 2.6 K/mm3 (1.8-7.7) 06/12/18 05:18 Seg Neutrophils # Man 3.8 K/mm3 (1.8-7.7) 06/10/18 13:19 Band Neutrophils # 0.1 K/mm3 06/10/18 13:19 Lymphocytes # (Manual) 1.4 K/mm3 (1.2-5.4) 06/10/18 13:19 Abs React Lymphs (Man) 0.0 K/mm3 06/10/18 13:19 Monocytes # (Manual) 0.7 K/mm3 (0.0-0.8) 06/10/18 13:19 Eosinophils # (Manual) 0.2 K/mm3 (0.0-0.4) 06/10/18 13:19 Basophils # (Manual) 0.0 K/mm3 (0.0-0.1) 06/10/18 13:19 Metamyelocytes # 0.0 K/mm3 06/10/18 13:19 Myelocytes # 0.0 K/mm3 06/10/18 13:19 Promyelocytes # 0.0 K/mm3 06/10/18 13:19 Blast Cells # 0.0 K/mm3 06/10/18 13:19 WBC Morphology Not Reportable 04/26/19 13:19 Hypersegmented Neuts Not Reportable 06/10/18 13:19 Hyposegmented Neuts Not Reportable 06/10/18 13:19 Hypogranular Neuts Not Reportable 06/10/18 13:19 Smudge Cells Not Reportable 06/10/18 13:19 Toxic Granulation Not Reportable 06/10/18 13:19 Toxic Vacuolation Not Reportable 06/10/18 13:19 Dohle Bodies Not Reportable 06/10/18 13:19 Pelger-Huet Anomaly Not Reportable 06/10/18 13:19 Maryann Rods Not Reportable 06/10/18 13:19 Platelet Estimate Cons 06/10/18 13:19 Clumped Platelets Not Reportable 06/10/18 13:19 Plt Clumps, EDTA Not Reportable 06/10/18 13:19 Large Platelets Few 06/10/18 13:19 Giant Platelets Not Reportable 06/10/18 13:19 Platelet Satelliting Not Reportable 06/10/18 13:19 Plt Morphology Comment Not Reportable 06/10/18 13:19 RBC Morphology Normal 06/10/18 13:19 Dimorphic RBCs Not Reportable 06/10/18 13:19 Polychromasia Not Reportable 06/10/18 13:19 Hypochromasia Not Reportable 06/10/18 13:19 Poikilocytosis Not Reportable 06/10/18 13:19 Anisocytosis Not Reportable 06/10/18 13:19 Microcytosis Not Reportable 06/10/18 13:19 Macrocytosis Not Reportable 06/10/18 13:19 Spherocytes Not Reportable 06/10/18 13:19 Pappenheimer Bodies Not Reportable 06/10/18 13:19 Sickle Cells Not Reportable 06/10/18 13:19 Target Cells Not Reportable 06/10/18 13:19 Tear Drop Cells Not Reportable 06/10/18 13:19 Ovalocytes Not Reportable 06/10/18 13:19 Helmet Cells Not Reportable 06/10/18 13:19 [place] Bodies Not Reportable 06/10/18 13:19 [place] Rings Not Reportable 06/10/18 13:19 [place] Cells Not Reportable 06/10/18 13:19 Bite Cells Not Reportable 06/10/18 13:19 Crenated Cell Not Reportable 06/10/18 13:19 Elliptocytes Not Reportable 06/10/18 13:19 Acanthocytes (Spur) Not Reportable 06/10/18 13:19 Rouleaux Not Reportable 06/10/18 13:19 Hemoglobin C Crystals Not Reportable 06/10/18 13:19 Schistocytes Not Reportable 06/10/18 13:19 Malaria parasites Not Reportable 06/10/18 13:19 Ricky Bodies Not Reportable 06/10/18 13:19 Hem Pathologist Commnt No 06/10/18 13:19 PT 17.9 Sec. (12.2-14.9) H 06/10/18 13:27 INR 1.38 (0.87-1.13) H 06/10/18 13:27 APTT 37.9 Sec. (24.2-36.6) H 06/10/18 13:27 D-Dimer 506.55 ng/mlDDU (0-234) H 06/10/18 13:27 Sodium 141 mmol/L (137-145) 06/13/18 05:43 Potassium 3.8 mmol/L (3.6-5.0) 06/13/18 05:43 Chloride 105.1 mmol/L (98-107) 06/13/18 05:43 Carbon Dioxide 28 mmol/L (22-30) 06/13/18 05:43 Anion Gap 12 mmol/L 06/13/18 05:43 BUN 19 mg/dL (7-17) H 06/13/18 05:43 Creatinine 0.8 mg/dL (0.7-1.2) 06/13/18 05:43 Estimated GFR > 60 ml/min 06/13/18 05:43 BUN/Creatinine Ratio 24 % 06/13/18 05:43 Glucose 95 mg/dL (65-100) 06/13/18 05:43 POC Glucose 87 (70-105) 06/15/18 11:41 Calcium 9.0 mg/dL (8.4-10.2) 06/13/18 05:43 Magnesium 1.60 mg/dL (1.7-2.3) L 06/13/18 05:43 Total Bilirubin 0.20 mg/dL (0.1-1.2) 06/12/18 05:30 Direct Bilirubin < 0.2 mg/dL (0-0.2) 06/10/18 13:19 Indirect Bilirubin 0.0 mg/dL 06/10/18 13:19 AST 14 units/L (5-40) 06/12/18 05:30 ALT 10 units/L (7-56) 06/12/18 05:30 Alkaline Phosphatase 72 units/L (35-129) 06/12/18 05:30 Troponin T < 0.010 ng/mL (0.00-0.029) 06/13/18 05:43 Total Protein 4.4 g/dL (6.3-8.2) L D 06/12/18 05:30 Albumin 2.4 g/dL (3.9-5) L 06/12/18 05:30 Albumin/Globulin Ratio 1.2 % 06/12/18 05:30 Active Medications - Current Medications Current Medications: Generic Name Dose Route Start Last Admin Trade Name Freq PRN Reason Stop Dose Admin Acetaminophen 650 mg 06/11/18 00:38 06/14/18 17:34 Tylenol PO 650 mg Q4H PRN Administration Pain MILD(1-3)/Fever >100.5/CARMICHAEL Amlodipine Besylate 10 mg 06/11/18 22:00 06/14/18 22:02 Norvasc PO 10 mg HS DIMITRI Administration Lipase/Protease/Amylase 1 each 06/14/18 13:36 06/14/18 21:[address] 10,500 Unit FEEDTUBE 1 each PRN PRN Administration For Clogged Feeding Tube Dextrose 50 ml 06/10/18 22:23 D50w (25gm) Syringe IV PRN PRN Hypoglycemia Gabapentin 300 mg 06/11/18 08:00 06/15/18 14:21 Neurontin PO 300 mg TID DIMITRI Administration Insulin Human Lispro 0 unit 06/11/18 07:30 06/15/18 11:46 Humalog SUB-Q Not Given [facility] Protocol Ondansetron HCl 4 mg 06/11/18 00:38 06/15/18 09:59 Zofran IV 4 mg Q8H PRN Administration Nausea And Vomiting Oxycodone/Acetaminophen 1 tab 06/11/18 00:38 06/14/18 05:36 Percocet 5/325 PO 1 tab Q6H PRN Administration Pain, Moderate (4-6) Pravastatin Sodium 20 mg 06/11/18 22:00 06/14/18 21:10 Pravachol PO 20 mg QHS DIMITRI Administration Rivaroxaban 20 mg 06/13/18 18:00 06/14/18 17:35 Xarelto PO 20 mg QPM DIMITRI Administration Protocol Sertraline HCl 50 mg 06/11/18 10:00 06/15/18 09:54 Zoloft PO 50 mg QAM DIMITRI Administration Simple Syrup 15 ml 06/14/18 13:36 Simple Syrup FEEDTUBE PRN PRN Hypoglycemia Simple Syrup 30 ml 06/14/18 13:36 Simple Syrup FEEDTUBE PRN PRN Hypoglycemia Sodium Bicarbonate 325 mg 06/14/18 13:36 06/14/18 21:13 Sodium Bicarbonate FEEDTUBE 325 mg PRN PRN Administration For Clogged Feeding Tube Sodium Chloride 10 ml 06/11/18 10:00 06/15/18 09:54 Sodium Chloride Flush Syringe 10 Ml IV 10 ml BID DIMITRI Administration Sodium Chloride 10 ml 06/11/18 00:38 06/14/18 13:35 Sodium Chloride Flush Syringe 10 Ml IV 10 ml PRN PRN Administration LINE FLUSH Zolpidem Tartrate 5 mg 06/11/18 00:32 06/14/18 22:03 Ambien PO 5 mg QHS PRN Administration Sleep Nutrition/Malnutrition Assess - Dietary Evaluation Nutrition/Malnutrition Findings: Nutrition Notes Start: 06/11/18 10:19 Freq: Status: Active Protocol: Document 06/14/18 13:43 RM (Rec: 06/14/18 13:55 RM [id number]) Nutrition Notes Initial or Follow up Reassessment Current Diagnosis Acute Kidney Injury,Diabetes, Hypertension,Heart Failure Other Pertinent Diagnosis Gastroparesis Current Diet Consistent CHO Labs/Tests Reviewed Pertinent Medications Reviewed Height 5 ft 3 in Weight 83 kg [place] Body Weight (kg) 52.27 BMI 32.4 Subjective/Other Information RN called stating that MD is requesting substitute for Peptide 1.5 formula. Pt agreed to trying substitute infused over 24 hours. Stated she has not tried Promote before. Burn Absent Trauma Absent #1 Nutrition Diagnosis Inadequate oral intake Diagnosis Progress(for reassessment Continues documentation) Is patient on ventilator? No Is Patient Ambulatory and/or Out of Bed Yes REE-([facility]-ambulatory/OOB) [ 3507.621 NUTR.MSJOOB] Kcal/Kg value to use for calculation 17 Approximate Energy Requirements Using 1411 kcal/Kg Calculation Used for Recommendations Rosie Kay Additional Notes Protein needs are 83-100g (1-1 .2g/kg) Fluid needs are 1ml/kcal Nutrition Intervention Change Diet Order: Continue current Nutrition Support: Substitute Promote at 60 ml/hr . Water flush of 50 mls q 4 hrs. Kcal 1,440 Protein (gm) 90 Fluid (mL) 1,208 Goal #1 Meet at least 75% of kcal and protein needs via TF Anticipated Discharge Needs: Unable to determine at this time Follow-Up By: 06/16/18 Additional Comments Follow for TF tolerance
[2018-06-15] MEDS ORDERED: NACL 0.9% 0 ML ONE (16:39)
[2018-06-15] MEDS ORDERED: NACL 0.9% 500 ML IR ONE (16:39)
[2018-06-15] MEDS ORDERED: SUBLIMAZE ONE (16:39)
[2018-06-15] MEDS ORDERED: XYLOCAINE 2% INFILTRATI ONE (16:39)
[2018-06-15] MEDS ORDERED: SILVER NITRATE TP ONE ×3 (17:33→17:35)
[2018-06-15] MEDS ORDERED: XYLOCAINE 1%/ EPI 1:100,000 INFILTRATI ONE (17:39)
--- NOTE | 2018-06-15 17:43 | Post Operative Note ---
Date of procedure: 06/15/18 Pre-op diagnosis: GJ tube malfunction Post-op diagnosis: other (GJ tube coiled in the stomach/malfunction/malposition) Findings: GJ tube coiled in the stomach. Tube was completely removed and a new tube was appropriately placed without coiling in the stomach. Granulation tissue treated with silver nitrate. Procedure: 1. GJ tube exchange with contrast injection, 18 Fr GJ tube 2. Silver nitrate cauterization of stoma granulation tissue Anesthesia: local (w/ conscious sedation) Surgeon: MONI MCINTOSH Estimated blood loss: minimal Condition: stable Disposition: floor
--- NOTE | 2018-06-15 17:44 | Operative Report ---
Operative Report Operative Report: EXAM: 1. 18 [place] Jennyfer-Erwin gastrojejunostomy tube placement with removal of prior 18 Fr gastrojejunostomy tube 2. Silver nitrate application of granulation tissue at ostomy DATE: 06/15/18 AUXILIARY POWER EQUIPMENT OPERATOR: MONI MCINTOSH MD INDICATION: J-tube malfunction with clogged J port and multiple bouts of emesis MEDICATIONS: Please see nursing report for full details. CONTRAST: Please see ammunition assembly i laborer report for full details. PROCEDURE: The risks, benefits, and alternatives were discussed the patient; written inform ed consent was obtained. The patient was brought to the angiography table and ostomy was prepped and draped in sterile fashion Fluoroscopy was performed identifying the existing malfunctioning gastr ojejunostomy tube was coiled in the stomach. Prior gastrojejunostomy tube was removed. Vertebral catheter with stiff angled Glidewire with intermittent injections of contrast was used to cannulate the ostomy and contrast was injected confirming position in the stomach, duodenum, and ultimately the jejunum. Placing the catheter and negotiating through the intestines without having the catheter coil in the stomach was difficult but ultimately successful. A new 18 [place] Jennyfer-Erwin gastrojejunostomy tube was advanced over the wire. 8 mL of fluid was injected in the balloon port. Jejunostomy port was injected confirming position in the jejunum. Gastrostomy port was injected confirming position in the stomach. The granulation tissue at the stoma was bleeding. This was treated with silver nitrate application multiple times in order to reduce the hypertrophic granulation tissue. Injection with lidocaine with epinephrine was also performed. Ultimately, the granulation tissue was cauterized and treated in order to reduce the hypertrophy. The patient tolerated the procedure well. No immediate postprocedure complication. FINDINGS: See procedure note above. IMPRESSION: 1. Successful placement of a 18 [place] Jennyfer-Erwin gastrojejunostomy tube as described above.
[2018-06-15] MEDS: XARELTO PO SCH (18:29)
[2018-06-15] MEDS: PRAVACHOL PO SCH (21:07)
[2018-06-15] MEDS: NORVASC PO SCH (21:07)
[2018-06-16 08:15] VITALS: BP 103/64
[2018-06-16] MEDS: HumaLOG SUB-Q SCH (09:24)
[2018-06-16] MEDS: NEURONTIN PO SCH ×2 (09:26→09:37)
[2018-06-16] MEDS: ZOLOFT PO SCH (09:26)
--- NOTE | 2018-06-16 10:49 | Discharge Summary ---
Providers - Providers Date of Admission: 06/10/18 15:14 Attending physician: HI RENE MD 06/11/18 13:29 Consult to Physician [CONS] Routine Comment: Consulting Provider: ARGELIA DEY Physician Instructions: Reason For Exam: recurrent syncope 06/12/18 13:21 Consult to Dietitian/Nutrition [CONS] Routine Physician Instructions: Reason For Exam: Reason for Consult: Write/Manage Tube Feeding 06/13/18 11:24 Occupational Therapy Evaluate and Treat [CONS] Routine Comment: Reason For Exam: ADLs evaluation Physical Therapy Evaluation and Treat [CONS] Routine Comment: Reason For Exam: gait evaluation/ambulatory dysfunction [facility] Condition: Stable Hospital course: Patient is a 63 yo woman with a history of hypertension, type 2 DM, gastroparesis s/p PEG tube, CHF, DVT on Xarelto, depression, peripheral neuropahty on gabapentin and dyslipidemia who presents to [facility] ED after recurrent syncopal episode. * Brain imaging has been unremarkable, she received neurology consult, neurology believes that she is likely having seizures, and have recommended antiseizure medications, placed on keppra * Stress test was done, per cardiology does negative, no further cardiac workup was recommended * The patient developed hypotension which resolved with IV fluids and reducing her antihypertensives * The patient has a GJ tube due to gastroparesis, GJ tube malfunction, and therefore was replaced by IR * Electrolytes have been repleted namely potassium and magnesium. Hyponatremia was treated with hypotonic IV fluid * The patient had an elevated d-dimer, lower extremity Dopplers and CT angiogram chest were negative * The patient has a history of DVT, she was on anticoagulants, held during syncope workup, now on hold pending G-J tube Diagnoses Syncope, likely due to seizures Acute renal failure due to vasomotor nephropathy Hypotension, resolved with IV fluids, due to dehydration Gastroparesis, chronic Type 2 diabetes History of DVT moderate malnutrition Disposition: -01 TO HOME OR SELFCARE Time spent for discharge: 33 minutes Core Measure Documentation - Palliative Care Palliative Care/ Comfort Measures: Not Applicable - Core Measures Any of the following diagnoses?: none Exam - Constitutional Vitals: Temp Pulse Resp BP Pulse Ox 98.4 F 77 14 103/64 96 06/16/18 08:11 06/16/18 08:11 06/16/18 08:11 06/16/18 08:11 06/16/18 08:11 General appearance: Present: no acute distress, well-nourished - EENT Eyes: Present: PERRL ENT: hearing intact, clear oral mucosa - Neck Neck: Present: supple, normal ROM - Respiratory Respiratory effort: normal Respiratory: bilateral: CTA - Cardiovascular Heart Sounds: Present: S1 & S2. Absent: rub, click - Extremities Extremities: pulses symmetrical, No edema Peripheral Pulses: within normal limits - Abdominal General gastrointestinal: Present: soft, non-tender, non-distended, normal bowel sounds Female genitourinary: Present: normal - Integumentary Integumentary: Present: clear, warm, dry - Musculoskeletal Musculoskeletal: gait normal, strength equal bilaterally - Psychiatric Psychiatric: appropriate mood/affect, intact judgment & insight - Neurologic Neurologic: CNII-XII intact, moves all extremities Plan Follow up with: ARGELIA DEY MD [Staff Physician] - 7 Days [place] [place] COURT[facility] RAE MD [Primary Care Provider] - 3-5 Days Prescriptions: levETIRAcetam [Keppra TAB] 500 mg PO BID #60 tablet oxyCODONE /ACETAMINOPHEN [Percocet 5/325 mg] 1 tab PO Q6H PRN #15 tablet PRN Reason: Pain, Moderate (4-6)
== END 2018-06-16 15:12 | disposition home or self-care (01) | DRG 393 ==
LOC: ED 12:15 → 2B-ACE 15:14
PROVIDERS: ADMIT Internal Medicine; ATTEND Internal Medicine
PROC: 0D20XUZ Change Feeding Device in Upper Intestinal Tract, External Approach (ICD-10-PCS; principal; 2018-06-15)
PROC: 0D2DXUZ Change Feeding Device in Lower Intestinal Tract, External Approach (ICD-10-PCS; 2018-06-15)
PROC: 0DP6XUZ Removal of Feeding Device from Stomach, External Approach (ICD-10-PCS; 2018-06-15)
PROC: 0DPDXUZ Removal of Feeding Device from Lower Intestinal Tract, External Approach (ICD-10-PCS; 2018-06-15)
DX: K94.23 Gastrostomy malfunction (principal); N17.0 Acute kidney failure with tubular necrosis; E87.1 Hypo-osmolality and hyponatremia; E44.0 Moderate protein-calorie malnutrition; K94.13 Enterostomy malfunction; G40.909 Epilepsy, unspecified, not intractable, without status epilepticus; R55 Syncope and collapse; I50.9 Heart failure, unspecified; E11.43 Type 2 diabetes mellitus with diabetic autonomic (poly)neuropathy; K31.84 Gastroparesis; I11.0 Hypertensive heart disease with heart failure; E83.42 Hypomagnesemia; E11.42 Type 2 diabetes mellitus with diabetic polyneuropathy; E78.5 Hyperlipidemia, unspecified; I95.9 Hypotension, unspecified; E87.6 Hypokalemia; Y83.8 Other surgical procedures as the cause of abnormal reaction of the patient, or of later complication, without mention of misadventure at the time of the procedure; Y92.89 Other specified places as the place of occurrence of the external cause; Z86.718 Personal history of other venous thrombosis and embolism; Z68.32 Body mass index [BMI] 32.0-32.9, adult; Z79.01 Long term (current) use of anticoagulants
CPT/HCPCS: 17250; 36415; 49452; 70450; 71275; 72125; 78452; 80048; 80053; 80076; 82962; 83735; 84484; 85007; 85025; 85027; 85379; 85610; 85730; 87116; 93005; 93010; 93017; 93306; 93880; 93970; G0378; A9270-GY; A9502; C1751; C1769; J2405; J2785; J3010; J3475; J7030; Q9967